=== PATIENT | female | born 1930 | race Caucasian/White ===

== ENCOUNTER → 2016-12-18 | Outpatient (CLI) | payer BC ==
[~2016-12-18] MED LIST: ALBU1AER9 INH; ASPI81TA28 PO; BACL10TA PO; GLC5 PO; GLC500 PO; GLUCTAB7 PO; HYCUDL5 PO; MULT-506 PO; PRDFOPS OPR; PYRI50TA77 PO
[2016-12-18 12:50] LABS: ESTIMATED AVERAGE GLUCOSE 148 mg/dl; HA1C FLAG Normal (Normal)
[2016-12-18 13:06] LABS: BLOOD UREA NITROGEN 21 mg/dl (7-18); BUN/CREATININE RATIO 23.4 (10-20); CALCIUM 8.9 mg/dl (8.5-10.1); CARBON DIOXIDE 31 mmol/L (21-32); CHLORIDE 103 mmol/L (98-107); CHOLESTEROL 215 mg/dl (0-200); GLUCOSE 144 mg/dl (70-99); POTASSIUM 4.2 mmol/L (3.5-5.1); SODIUM 140 mmol/L (136-145)
[2016-12-18 13:09] LABS: CHOLESTEROL/HDL RATIO 3.8; HDL CHOLESTEROL 57 mg/dl; TRIGLYCERIDES 111 mg/dl (0-150); VERY LOW DENSITY LIPOPROT CALC 22 mg/dl
== END | disposition home or self-care (01) ==
LOC: C.LABSPEC 12:04
PROVIDERS: ATTEND Internal Medicine
DX: I25.10 Atherosclerotic heart disease of native coronary artery without angina pectoris (principal); E11.9 Type 2 diabetes mellitus without complications; Z00.00 Encounter for general adult medical examination without abnormal findings

== ENCOUNTER → 2016-12-25 | Outpatient (CLI) | payer BC ==
[~2016-12-25] MED LIST changes: +ESCI1TAB9 PO; +LEVE500T PO; +MAGN200T3 PO
== END | disposition home or self-care (01) ==
LOC: C.LABSPEC 15:01
PROVIDERS: ATTEND Internal Medicine
DX: Z12.11 Encounter for screening for malignant neoplasm of colon (principal)

== ENCOUNTER → 2017-01-17 | Outpatient (CLI) | payer BC ==
[2017-01-17 13:29] LABS: BASO % 0.4 %; BASO ABS # 0.03 K/uL (0-0.2); COMPLETE YES; EOS % 1.3 %; HEMATOCRIT 45.2 % (37-47); IG% 0.1 %; LYMPH % 13.8 %; LYMPH ABS # 0.98 K/uL (1.2-3.4); MEAN CELL VOLUME 92.1 fL (80-100); MEAN CORPUSCULAR HEMOGLOBIN 29.9 pg (25-34); MEAN CORPUSCULAR HGB CONC 32.5 g/dl (32-36); MONO % 10.8 %; NEUT % 73.6 %; PLATELET COUNT 209 K/uL (130-400); RED BLOOD COUNT 4.91 M/uL (4.2-5.4)
[2017-01-17 14:35] LABS: ALT/SGPT 22 U/L (12-78); BLOOD UREA NITROGEN 22 mg/dl (7-18); BUN/CREATININE RATIO 28.8 (10-20); CARBON DIOXIDE 31 mmol/L (21-32); CHLORIDE 105 mmol/L (98-107); CREATININE 0.76 mg/dl (0.60-1.20); GLUCOSE 102 mg/dl (70-99); POTASSIUM 4.4 mmol/L (3.5-5.1); SODIUM 142 mmol/L (136-145)
[2017-01-17 14:37] LABS: CALCIUM 9.2 mg/dl (8.5-10.1)
[2017-01-17 14:45] LABS: ALB/GLOB RATIO 1.1 (0.9-2); ALKALINE PHOSPHATASE 77 U/L (45-117); AST/SGOT 18 U/L (15-37)
== END | disposition home or self-care (01) ==
LOC: C.LABSPEC 12:40
PROVIDERS: ATTEND Internal Medicine
DX: E11.9 Type 2 diabetes mellitus without complications (principal); I10 Essential (primary) hypertension; R41.3 Other amnesia

== ENCOUNTER → 2017-01-23 | Outpatient (CLI) | payer BC ==
--- NOTE | 2017-01-24 08:28 | MAMMOGRAPHY REPORT ---
BILATERAL DIGITAL SCREENING MAMMOGRAM WITH CAD: 01/23/2017 CLINICAL HISTORY: Routine screening. Patient has no complaints. TECHNIQUE: Bilateral CC and MLO views were obtained. Current study was also evaluated with a Comput er Aided Detection (CAD) system. COMPARISON: Comparison is made to exams dated: 01/18/2016 mammogram, 08/26/2013 mammogram, 08/22/2012 mammogram, 08/21/2011 mammogram, and 08/16/2001 mammogram - [facility]. BREAST COMPOSITION: The tissue of both breasts is almost entirely fatty. FINDINGS: There are post surgical changes in the left breast, with expected architectural distortion , dystrophic calcification and surgical clips remaining in the upper outer quadrant. There are mode rate vascular calcifications in the breasts and other scattered stable benign-appearing calcificatio ns. No new suspicious mass, architectural distortion or cluster of microcalcifications is seen. IMPRESSION: ACR BI-RADS CATEGORY 1: NEGATIVE There is no mammographic evidence of malignancy. A 1 year screening mammogram is recommended. The p atient will receive written notification of the results. Approximately 10% of breast cancers are not detected with mammography. A negative mammographic repor t should not delay biopsy if a clinically suggestive mass is present. Chloé Radford M.D. ay/:01/23/2017 16:35:14 Director Of Physical Security: Estefany DESIR)(Arn[place]), [facility] letter sent: Normal 1/2 BI-RADS Code: ACR BI-RADS Category 1: Negative
== END | disposition home or self-care (01) ==
LOC: C.MAMM 13:35
PROVIDERS: ATTEND Internal Medicine
DX: Z12.31 Encounter for screening mammogram for malignant neoplasm of breast (principal)

== ENCOUNTER → 2017-03-21 | Outpatient (CLI) | payer BC ==
[~2017-03-21] MED LIST changes: -ESCI1TAB9 PO; +GADAVIST IV PRN; -LEVE500T PO; -MAGN200T3 PO
--- NOTE | 2017-03-21 15:36 | DIAGNOSTIC IMAGING REPORT ---
MRI OF THE BRAIN COMBO CLINICAL HISTORY: Stroke. Aphasia. COMPARISON STUDY: MRI of the brain dated 10/21/2015. TECHNIQUE: MRI of the brain was performed utilizing various T1 and T2-weighted sequences in the axial, sagittal, and coronal planes. Contrast-enhanced sequences were acquired following the administration of 8.5 cc of Gadavist. FINDINGS: Brain parenchyma: There are age-related involutional changes noting moderate patchy subcortical and periventricular microangiopathic disease. Left temporo-occipital encephalomalacia is consistent with a remote infarct. Chronic lacunar infarcts are seen within the left caudate head and the right basal ganglia. There is no hemorrhage or mass effect. There is no restricted diffusion to suggest acute ischemia. No enhancing mass lesion is identified on the postcontrast images. Richards-white matter differentiation is preserved. No extra-axial fluid collection is seen. The cerebellar tonsils are normal in configuration. Ventricles, sulci, and cisterns: Normal in configuration. Pituitary and sella: Partially empty sella is incidentally noted. Intracranial vasculature: Normal flow voids are maintained at the skull base. Orbits: The bony orbits are grossly intact. Orbital contents are normal in appearance noting bilateral ocular lens implants. Sinuses and mastoids: Clear. Calvarium: Unremarkable. Cervical cord: Partially visualized cervical spinal cord is normal in morphology and signal intensity. IMPRESSION: Senescent change and remote infarcts as above. There is no hemorrhage, enhancing mass, or evidence of acute ischemia. Electronically signed by: Salazar Huang M.D. 03/21/2017 3:35 PM Dictated Date/Time: 03/21/2017 3:31 PM
== END | disposition home or self-care (01) ==
LOC: C.MRI 13:29
PROVIDERS: ATTEND Psychiatry & Neurology Neurology
DX: I69.920 Aphasia following unspecified cerebrovascular disease (principal)

== ENCOUNTER → 2017-04-19 | Outpatient (CLI) | payer BC ==
[~2017-04-19] MED LIST changes: -GADAVIST IV PRN
[2017-04-19 12:55] LABS: ESTIMATED AVERAGE GLUCOSE 154 mg/dl; HA1C FLAG Normal (Normal)
[2017-04-19 13:32] LABS: BLOOD UREA NITROGEN 17 mg/dl (7-18); CALCIUM 8.8 mg/dl (8.5-10.1); CARBON DIOXIDE 32 mmol/L (21-32); CHLORIDE 101 mmol/L (98-107); CHOLESTEROL 198 mg/dl (0-200); CREATININE 0.98 mg/dl (0.60-1.20); GLUCOSE 139 mg/dl (70-99); POTASSIUM 4.2 mmol/L (3.5-5.1); SODIUM 140 mmol/L (136-145); TRIGLYCERIDES 82 mg/dl (0-150); VERY LOW DENSITY LIPOPROT CALC 16 mg/dl
[2017-04-19 13:37] LABS: CHOLESTEROL/HDL RATIO 3.6; HDL CHOLESTEROL 55 mg/dl
== END | disposition home or self-care (01) ==
LOC: C.LABSPEC 12:10
PROVIDERS: ATTEND Internal Medicine
DX: E78.5 Hyperlipidemia, unspecified (principal); E11.9 Type 2 diabetes mellitus without complications; I25.10 Atherosclerotic heart disease of native coronary artery without angina pectoris

== ENCOUNTER 2017-07-11 15:45 | Emergency (ER) | payer BC ==
[~2017-07-11] VITALS: Ht 162.6 cm; Wt 86.5 kg
[~2017-07-11 15:45] MED LIST changes: +ESCI1TAB9 PO; +LEVE500T PO
[2017-07-11 15:53] VITALS: TEMP 37.2; Ht 162.6 cm; Wt 86.5 kg
--- NOTE | 2017-07-11 16:14 | EMERGENCY ROOM VISIT NOTE ---
ED Visit Note First contact with patient: 15:57 The patient was seen and examined with Dr. Alok Solitario. I agree with the history, physical and findings. Please see the note for disposition and details. Seen and evaluated w/ patient. Fall 1 week prior. Using cane for ambulation. R hip pain w/ very mild TTP w/o any limb shorterning, numbness, tingling, weakness , or sking changes/ecchymosis. Patient did have CT pelvis, no frx noted. B/l DVT US completed w/ likely chronic DVT of LLE. We did speak w/ the patient who stated she would prefer a NOAC as opposed to warfarin. Our pharmacist recommended Apixaban 5mg BID. Resident did speak w/ patient's PCP who stated this is a chronic DVT and would address anti-coagulation w/ her in clinic either tomorrow or early next week. Patient w/o SOB or CP. Blood work fairly unremarkable. Patient given f/u, d/c and return precautions and was d/c'ed to home.
[2017-07-11] MEDS ORDERED: MAGN200T3 PO (16:15)
--- NOTE | 2017-07-11 16:50 | EMERGENCY ROOM VISIT NOTE ---
History First contact with patient: 15:57 Chief Complaint: HIP PAIN Stated Complaint: RIGHT HIP AND UPPER LEG PAIN, GROIN PAIN History of Present Illness The patient is a 86 year old female who presents to the Emergency Room with complaints of right hip pain. Last week the patient states that she fell down. This was a mechanical fall. She was outside in her garden, and there is a 2 inch step that led back to the house which she tripped on. She states that she fell on the right side of her abdomen. She denies hitting her head or losing consciousness. She states that immediately after the fall she did have some discomfort in her right elbow and right hip but these resolved quickly. She was having slight discomfort with ambulation, but states that the pain was very tolerable. However the past 2 days, she notes that she is having progressive difficulty ambulating. She describes a 6 out of 10 pain in her right hip and thigh, all around that occurs when she goes from sitting to standing as well as anytime she is walking. She also states which he goes from sitting to standing the pain radiates down to her feet. When she is at rest she denies any sensory changes to her distal extremities. She denies any fevers, chills, night sweats. Her appetite has been good and she 's been eating normally. She is not having any nausea, vomiting, abdominal pain , diarrhea or constipation. She's not had any urinary symptoms including dysuria or urinary frequency. Review of Systems A 10 point review of systems was negative unless stated above. Past Medical/Surgical History Medical Problems: (1) ACUTE BRONCHOPNEUMONITIS,HYPOXEMIA Hiatal hernia Type 2 Diabetes Abnormal EEG activity, otherwise unspecified History of left-sided CVA Family History Cancer Diabetes mellitus Hypertension Lung disease Social History Smoking Status: Never Smoker Smokeless Tobacco Use: No Alcohol Use: none Drug Use: none Housing Status: lives with family Occupation Status: unemployed Current/Historical Medications Scheduled Aspirin (Aspirin Ec), 81 MG PO QAM Escitalopram Oxalate (Lexapro), 1 TAB PO DAILY Glipizide (Glipizide), 0.5 TAB PO QAM Levetiractam (Levetiracetam), 1 TAB PO DAILY Magnesium (Magnesium), 100 MG PO DAILY Metformin HCl (Metformin HCl), 1 TAB PO BID Multivitamin (Multivitamin), 1 TAB PO QAM Pyridoxine Hcl (Vitamin B 6), 0.25 TAB PO QAM Scheduled PRN Baclofen (Lioresal), 10 MG PO HS PRN for LEG CRAMPS Allergies Pencillin Physical Exam Vital Signs Date Time Temp Pulse Resp B/P (MAP) Pulse Ox O2 Delivery O2 Flow Rate FiO2 07/11/17 18:40 72 17 196/91 93 Room Air 07/11/17 16:48 73 15 189/87 92 Room Air 07/11/17 15:53 37.2 75 20 166/81 94 Room Air Pain Rating (0-10): 0 Physical Exam Constitutional: Vital signs as above were reviewed. Eyes: Pupils equal, round, and reactive to light. Extraocular muscles are intact. No proptosis. No photophobia. ENT: Mucous membranes are moist. Oropharynx is clear. No sinus tenderness. TMs are clear bilaterally. Cardiovascular: Heart with a regular rate and rhythm. Pulses are palpable and symmetric in all 4 extremities. No pedal edema appreciated. Respiratory: Lungs clear to auscultation bilaterally. No wheezes, rales, or rhonchi appreciated. No accessory muscle use. No retractions. No increased work of breathing. GI: Abdomen soft, nontender, nondistended. Normal active bowel sounds. No abdominal hernias appreciated. No rebound. No guarding. : No CVA tenderness appreciated. Musculoskeletal: No midline cervical or vertebral tenderness. No gross deformities. No bony tenderness. No calf swelling or tenderness. Normal right elbow; no ecchymoses, no bony abnormalities; normal range of motion without pain or tenderness No leg length discrepancy between L and R leg No pain or bony abnormality palpated; no trochanteric tenderness; no groin tenderness to palpation Pain with passive flexion of the right hip Bilateral calf pain to palpation; no obvious swellingg Integumentary: Warm, dry, no rashes appreciated. Neurological: Patient awake, alert, and oriented x 3. Lymph: No cervical lymphadenopathy appreciated. Medical Decision & Procedures ER Provider Diagnostic Interpretation: RIGHT HIP CT CT DOSE: 601.52 mGy.cm HISTORY: fall 1 week ago, difficulty ambulating TECHNIQUE: Multiaxial CT images of the right hip were performed and reformatted in the sagittal and coronal plane without the use of contrast. A dose lowering technique was utilized adhering to the principles of ALARA. COMPARISON: None. FINDINGS: No fracture or dislocation within the right hip. The visualized pelvic bones are intact. Soft tissues unremarkable. No significant hip effusion. Small fat-containing right inguinal hernia. Colonic diverticulosis. IMPRESSION: No fracture or dislocation within the right hip. Electronically signed by: Jaxson Albert M.D. 07/11/2017 5:23 PM Dictated Date/Time: 07/11/2017 5:20 PM The status of this report is Signed. Draft = Not yet reviewed or approved by Radiologist. Signed = Reviewed and approved by Radiologist. BILATERAL LOWER EXTREMITY VENOUS DOPPLER HISTORY: poor ambulation 1 week; bilateral calf pain; rule out DVT COMPARISON STUDY: None. FINDINGS: No DVT within the right lower extremity. There are few small scattered linear echogenic areas of nonocclusive thrombus within the left superficial femoral vein suggestive of chronic thrombus. The remaining left lower extremity venous structures are patent. IMPRESSION: 1. No DVT within the right lower extremity. 2. Nonocclusive thrombus within the left superficial femoral vein which is likely chronic. No acute DVT within the left lower extremity. Electronically signed by: Jaxson Albert M.D. 07/11/2017 6:08 PM Dictated Date/Time: 07/11/2017 6:05 PM The status of this report is Signed. Draft = Not yet reviewed or approved by Radiologist. Signed = Reviewed and approved by Radiologist. <AttendingPhy></AttendingPhy> <FamilyPhy>Issac Taveras M.D.</FamilyPhy> < PrimaryPhy>Issac Taveras M.D.</PrimaryPhy> <UnitNumber>[id number]</ UnitNumber> <VisitNumber Laboratory Results 07/11/17 16:47 07/11/17 16:47 Test 07/11/17 16:47 Red Blood Count 4.75 M/uL (4.2-5.4) Mean Corpuscular Volume 90.1 fL (80-100) Mean Corpuscular Hemoglobin 29.5 pg (25-34) Mean Corpuscular Hemoglobin Concent 32.7 g/dl (32-36) RDW Standard Deviation 42.2 fL (36.4-46.3) RDW Coefficient of Variation 13.0 % (11.5-14.5) Mean Platelet Volume 9.7 fL (7.4-10.4) Anion Gap 5.0 mmol/L (3-11) Est Creatinine Clear Calc Drug Dose 40.2 ml/min Estimated GFR () 55.3 Estimated GFR (Non- 47.7 BUN/Creatinine Ratio 19.1 (10-20) Calcium Level 8.9 mg/dl (8.5-10.1) ED Course 16:15 - The patient was seen and evaluated by Dr. Alok Solitario MD [facility] 16:35 - Labs: CBC, BMP, CT right hip, dopplers of the lower extremity. 18:45 - Reviewed labs, images and noted left chronic non-occlusive DVT 18:50 - Discussed case with patient's PCP, Dr. Pk King. Discussed chronic left DVT. Offered anticoagulation. PCP noted to hold off, he would assess in office. 18:55 - Discussed results with patient. Noted that she has no acute fracture, and can be discharge home with supportive care. 19:00 - Patient discharged home in stable condition. Medical Decision Several female who presents with right hip pain on a background fall 1 week ago. Differential diagnosis includes right hip fracture, hip dislocation, psoas muscle strain, sacroiliitis, acute osteoarthritis, trochanteric bursitis, septic joint, rhabdomyolysis. Her exam is unremarkable for any leg length discrepancy and palpation along her joints is fairly benign. She had good range of motion in her right hip but had some pain towards the end of flexion. However, the range of motion is comparable to the left side. Pain only occurs with ambulation she is pain-free at rest. CT scan in the emergency room was negative for acute fracture. She did have Dopplers done due to the bilateral calf pain which did reveal a chronic nonocclusive left DVT. My suspicion that the patient has some degree of musculoligamentous strain the fall. This is not require admission at this time, and we recommend supportive care at home I spoke with her PCP Dr. Pk King and discussed the patient's workup here in the emergency room. I made note of the nonocclusive left DVT which appears to be chronic. I did offer to place the patient on anticoagulation at discharge. He did note that he would address this in the office but at this point not to start her on anticoagulation. I relayed the results the patient and her daughter, who were reassured by the fact there was no acute fracture. I did recommend discharge home, and provided resources for them to contact at [facility] if needed. I reiterated supportive treatment such as Tylenol and/or Motrin as needed for pain and discomfort when necessary. I did encourage the patient to use the right hip as much as possible to prevent deconditioning. I advised her to follow-up with her primary care provider within one week to ensure that her symptoms continued to improve. The patient was feeling well the time of discharge and was discharged in stable condition. 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 scan in the emergency room was negative for a hip fracture. We did an ultrasound did show an old clot in your left leg. We spoke with your PCP, who does not think you need to be on a blood thinner right now. He will discuss this with you in the office You likely strained a muscle in the hip. Please use Tylenol as needed for pain. If Tylenol does not help, you can add in Motrin. You can try ice packs and heating packs as well. Please try to walk as much as tolerated to prevent deconditioning. If you want contact information for a physical therapist you can call [facility] at [phone]. If your symptoms fail to improve, acutely worsen or please seek medical attention immediately by either calling your primary care provider or going to your nearest emergency department. Otherwise, please see your primary care provider within 1 week to ensure that your symptoms continue to improve. It was a pleasure to be involved in your care and we wish you all the best. Problem Qualifiers
[2017-07-11 17:00] LABS: HEMATOCRIT 42.8 % (37-47); MEAN CELL VOLUME 90.1 fL (80-100); MEAN CORPUSCULAR HEMOGLOBIN 29.5 pg (25-34); MEAN CORPUSCULAR HGB CONC 32.7 g/dl (32-36); MEAN PLATELET VOLUME 9.7 fL (7.4-10.4); PLATELET COUNT 205 K/uL (130-400); RED BLOOD COUNT 4.75 M/uL (4.2-5.4); WHITE BLOOD COUNT 7.18 K/uL (4.8-10.8)
[2017-07-11 17:23] LABS: BUN/CREATININE RATIO 19.1 (10-20); CALCIUM 8.9 mg/dl (8.5-10.1); CREATININE 1.05 mg/dl (0.60-1.20); POTASSIUM 4.4 mmol/L (3.5-5.1)
--- NOTE | 2017-07-11 17:25 | DIAGNOSTIC IMAGING REPORT ---
RIGHT HIP CT CT DOSE: 601.52 mGy.cm HISTORY: fall 1 week ago, difficulty ambulating TECHNIQUE: Multiaxial CT images of the right hip were performed and reformatted in the sagittal and coronal plane without the use of contrast. A dose lowering technique was utilized adhering to the principles of ALARA. COMPARISON: None. FINDINGS: No fracture or dislocation within the right hip. The visualized pelvic bones are intact. Soft tissues unremarkable. No significant hip effusion. Small fat-containing right inguinal hernia. Colonic diverticulosis. IMPRESSION: No fracture or dislocation within the right hip. Electronically signed by: Jaxson Albert M.D. 07/11/2017 5:23 PM Dictated Date/Time: 07/11/2017 5:20 PM
--- NOTE | 2017-07-11 18:09 | DIAGNOSTIC IMAGING REPORT ---
BILATERAL LOWER EXTREMITY VENOUS DOPPLER HISTORY: poor ambulation 1 week; bilateral calf pain; rule out DVT COMPARISON STUDY: None. FINDINGS: No DVT within the right lower extremity. There are few small scattered linear echogenic areas of nonocclusive thrombus within the left superficial femoral vein suggestive of chronic thrombus. The remaining left lower extremity venous structures are patent. IMPRESSION: 1. No DVT within the right lower extremity. 2. Nonocclusive thrombus within the left superficial femoral vein which is likely chronic. No acute DVT within the left lower extremity. Electronically signed by: Jaxson Albert M.D. 07/11/2017 6:08 PM Dictated Date/Time: 07/11/2017 6:05 PM
[2017-07-11 19:28] VITALS: BP 196/91; PULSE 74; O2SAT 93
== END 2017-07-11 19:10 | disposition home or self-care (01) ==
LOC: C.EDB 15:46 → C.EDC 19:10
DX: M25.551 Pain in right hip (principal); I82.5Z2 Chronic embolism and thrombosis of unspecified deep veins of left distal lower extremity; E11.9 Type 2 diabetes mellitus without complications; Z86.73 Personal history of transient ischemic attack (TIA), and cerebral infarction without residual deficits; Z79.82 Long term (current) use of aspirin; Z79.84 Long term (current) use of oral hypoglycemic drugs; Z79.899 Other long term (current) drug therapy; Z88.0 Allergy status to penicillin; Z80.9 Family history of malignant neoplasm, unspecified; Z83.3 Family history of diabetes mellitus; Z82.49 Family history of ischemic heart disease and other diseases of the circulatory system

== ENCOUNTER → 2017-09-01 | Outpatient (CLI) | payer BC ==
[~2017-09-01] MED LIST changes: -ALBU1AER9 INH; -GLUCTAB7 PO; -HYCUDL5 PO; +MAGN200T3 PO; -PRDFOPS OPR
[2017-09-01 10:26] LABS: ESTIMATED AVERAGE GLUCOSE 151 mg/dl; HA1C FLAG Normal (Normal)
[2017-09-01 10:30] LABS: BLOOD UREA NITROGEN 17 mg/dl (7-18); BUN/CREATININE RATIO 21.7 (10-20); CALCIUM 8.9 mg/dl (8.5-10.1); CARBON DIOXIDE 31 mmol/L (21-32); CHLORIDE 102 mmol/L (98-107); CHOLESTEROL 223 mg/dl (0-200); CREATININE 0.78 mg/dl (0.60-1.20); GLUCOSE 146 mg/dl (70-99); POTASSIUM 4.1 mmol/L (3.5-5.1); SODIUM 139 mmol/L (136-145)
[2017-09-01 10:32] LABS: CHOLESTEROL/HDL RATIO 3.7; HDL CHOLESTEROL 61 mg/dl; TRIGLYCERIDES 128 mg/dl (0-150); VERY LOW DENSITY LIPOPROT CALC 26 mg/dl
== END | disposition home or self-care (01) ==
LOC: C.LAB 09:34
PROVIDERS: ATTEND Internal Medicine
DX: E11.65 Type 2 diabetes mellitus with hyperglycemia (principal); E78.5 Hyperlipidemia, unspecified

== ENCOUNTER → 2018-01-04 | Outpatient (CLI) | payer BC ==
[2018-01-04 18:38] LABS: BLOOD UREA NITROGEN 18 mg/dl (7-18); CALCIUM 8.8 mg/dl (8.5-10.1); CARBON DIOXIDE 28 mmol/L (21-32); CREATININE 0.83 mg/dl (0.60-1.20); GLUCOSE 141 mg/dl (70-99); SODIUM 139 mmol/L (136-145)
[2018-01-04 18:41] LABS: CHOLESTEROL 215 mg/dl (0-200); LDL CHOLESTEROL CALCULATED 143 mg/dl
[2018-01-05 07:20] LABS: HEMOGLOBIN A1C 6.9 % (4.5-5.6)
== END | disposition home or self-care (01) ==
LOC: C.LABSPEC 16:44
PROVIDERS: ATTEND Internal Medicine
DX: Z00.00 Encounter for general adult medical examination without abnormal findings (principal); I70.91 Generalized atherosclerosis; E11.9 Type 2 diabetes mellitus without complications; E78.5 Hyperlipidemia, unspecified

== ENCOUNTER 2018-02-15 17:00 | Emergency (ER) | payer BC ==
[~2018-02-15] VITALS: Ht 160 cm; Wt 87.1 kg
[2018-02-15 17:06] VITALS: TEMP 36.9; Ht 160 cm; Wt 87.1 kg
[2018-02-15] MEDS ORDERED: PYRI25TA3 PO (18:15)
--- NOTE | 2018-02-15 18:40 | DIAGNOSTIC IMAGING REPORT ---
R RIBS UNILATERAL WITH PA CHEST CLINICAL HISTORY: eval for trauma. Fall. Right-sided chest pain. COMPARISON STUDY: Chest 12/27/2015. FINDINGS: Best seen on images 4 and 5 there are nondisplaced right anterior fourth through sixth rib fractures. No pneumothorax. Large hiatus hernia. The heart is normal in size. Mild interstitial thickening which is likely chronic. Left basilar linear densities favor subsegmental atelectasis. No evidence for pulmonary edema. IMPRESSION: 1. Nondisplaced right anterior fourth through sixth rib fractures. No pneumothorax. 2. Large hiatus hernia. Electronically signed by: Jaxson Albert M.D. 02/15/2018 6:39 PM Dictated Date/Time: 02/15/2018 6:34 PM
--- NOTE | 2018-02-15 19:14 | EMERGENCY ROOM VISIT NOTE ---
History Report prepared by Kevin: Belinda Sexton Under the Supervision of: Dr. Akira Veloz M.D. First contact with patient: 17:10 Chief Complaint: FALL Stated Complaint: PAIN RIGHT BREAST, FELL LAST WEEK History of Present Illness The patient is an 87 year old female who presents to the Emergency Room with complaints of persistent right breast pain starting 2 days ago. She describes the pain as sharp. The pain worsens with lying on her right side, certain movements, and breathing in. The pain improves with Aleve. The patient fell last week while she was raking. She took a misstep and fell. She landed on her right side. She denies any LOC. She suspects the pain is from the fall. She has not noticed any bruises. She denies any SOB, abdominal pain, shoulder pain, arm pain, leg pain, headache, facial pain, neck pain, back pain, lightheadedness, or dizziness. She is on baby aspirin. She has a history of hiatal hernia. Source of History: patient Onset: 2 days ago Position: other (right breast) Quality: sharp Timing: other (persistent) Modifying Factors (Worsening): breathing, movement, other (lying on right side) Modifying Factors (Relieving): other (Aleve) Associated Symptoms: No LOC, No headache, No neck pain, No SOB, No abdominal pain, No back pain Review of Systems See HPI for pertinent positives & negatives. A total of 10 systems reviewed and were otherwise negative. Past Medical & Surgical Medical Problems: (1) ACUTE BRONCHOPNEUMONITIS,HYPOXEMIA Old medical records were reviewed. Nurse's notes were reviewed and I agree with. Family History Cancer Diabetes mellitus Hypertension Lung disease Social History Smoking Status: Never Smoker Alcohol Use: none Drug Use: none Housing Status: lives with family Occupation Status: unemployed Current/Historical Medications Scheduled Aspirin (Aspirin Ec), 81 MG PO QAM Glipizide (Glipizide), 2.5 MG PO QAM Magnesium (Magnesium), 100 MG PO DAILY Metformin HCl (Metformin HCl), 500 MG PO BID Multivitamin (Multivitamin), 1 TAB PO QAM Pyridoxine Hcl (Pyridoxine Hcl), 25 MG PO QAM Allergies Coded Allergies: Penicillins (Verified Allergy, Unknown, CHILDHOOD ALLERGY, 02/15/18) Physical Exam Vital Signs Date Time Temp Pulse Resp B/P (MAP) Pulse Ox O2 Delivery O2 Flow Rate FiO2 02/15/18 19:15 76 20 165/71 96 02/15/18 19:15 76 20 165/71 96 Room Air 02/15/18 17:06 36.9 76 20 190/89 93 Room Air Physical Exam General: Non-ill appearing older female in no acute distress. HEENT: Normal cephalic atraumatic. Pupils are equal round and reactive to light. Extraocular movements are intact. Oropharynx is pink with moist mucous membranes. No swelling of the mouth lips or tongue. Neck: Supple with a midline trachea. No meningeal signs or stiffness, no JVD or bruits. No Stridor. Chest: Clear to auscultation bilaterally. No wheezes or rhonchi. No increased work of breathing. Breast (in the presence of the daughter): Right breast is minimally tender. No redness or bruising. Heart: regular rate and rhythm. Abdomen: Soft nontender, nondistended without rebound guarding or rigidity. Extremities: No cyanosis clubbing or edema. No calf tenderness or assymetry Spine/Back. Non tender to palpation. No CVA tenderness Skin: Good turgor without rashes. Neurologic exam: Cranial nerves two through 12 are intact. Motor and sensation are intact and symmetrical throughout. Medical Decision & Procedures ER Provider Diagnostic Interpretation: X-ray results as stated below per interpretation by me and the radiologist: R RIBS UNILATERAL WITH PA CHEST CLINICAL HISTORY: eval for trauma. Fall. Right-sided chest pain. COMPARISON STUDY: Chest 12/27/2015. FINDINGS: Best seen on images 4 and 5 there are nondisplaced right anterior fourth through sixth rib fractures. No pneumothorax. Large hiatus hernia. The heart is normal in size. Mild interstitial thickening which is likely chronic. Left basilar linear densities favor subsegmental atelectasis. No evidence for pulmonary edema. IMPRESSION: 1. Nondisplaced right anterior fourth through sixth rib fractures. No pneumothorax. 2. Large hiatus hernia. Electronically signed by: Jaxson Albert M.D. 02/15/2018 6:39 PM Dictated Date/Time: 02/15/2018 6:34 PM ED Course 1716: Past medical records reviewed. The patient was evaluated in room B10, and a complete history and physical examination were performed. 1859: Upon reevaluation, the patient is doing well. I discussed the results and treatment plan with her. She verbalized agreement of the treatment plan. The patient was discharged home. Medical Decision Differentials include, but are not limited to; rib fracture, pneumothorax, breast contusion. This patient comes in as described above. she fell about a week ago and hit her right anterior chest she has been having a little pain since then that comes and goes. It is worse with breathing or moving. she looks well on exam on exam and she has no bruising the chest or breast and no crepitus. she has no abdominal pain. She has been using occasional NSAID and says that makes it feel much better. She has stable vital signs. She is mildly hypertensive. I did a chest x-ray with rib series there is no pneumothorax. she does have nondisplaced right-sided fourth fifth and sixth rib fractures. Again at this point, she has been out of the injury for about a week and is doing well and I do not think she needs any further imaging at this point her pain seems to be adequately controlled with NSAIDs which she should continue but take with food return if: Increasing pain, worsening of symptoms, fever or chills, any new problems or concerns. She should follow-up with her regular doctor early this coming week for recheck and return to the over the weekend if symptoms worsen. Medication Reconcilliation Current Medication List: was personally reviewed by me Blood Pressure Screening Patient's blood pressure: Elevated blood pressure Blood pressure disposition: Elevated BP felt to be situational Impression Primary Impression: Rib fractures Scribe Attestation The scribe's documentation has been prepared under my direction and personally reviewed by me in its entirety. I confirm that the note above accurately reflects all work, treatment, procedures, and medical decision making performed by me. Departure Information Dispostion Home / Self-Care Referrals Issac Taveras M.D. (PCP) Forms HOME CARE DOCUMENTATION FORM, IMPORTANT VISIT INFORMATION Patient Instructions My [facility] [place] [employer] Additional Instructions Rest. Drink plenty of fluids. Continue to use your Aleve in the [id number] recommended dosages if needed. Take with food Return to the ER if: Increasing pain, worsening symptoms, shortness of breath, fever chills, any new problems or concerns Follow-up with your doctor early this week for recheck or return to the ER if symptoms worsen in any way
[2018-02-15 19:15] VITALS: BP 165/71; PULSE 76; O2SAT 96
== END 2018-02-15 19:47 | disposition home or self-care (01) ==
LOC: C.EDB 17:02
DX: S22.41XA Multiple fractures of ribs, right side, initial encounter for closed fracture (principal); W19.XXXA Unspecified fall, initial encounter; Y93.H9 Activity, other involving exterior property and land maintenance, building and construction; Z88.0 Allergy status to penicillin

== ENCOUNTER → 2018-04-19 | Outpatient (CLI) | payer BC ==
[~2018-04-19] MED LIST changes: -BACL10TA PO; -ESCI1TAB9 PO; -LEVE500T PO; +PYRI25TA3 PO; -PYRI50TA77 PO
--- NOTE | 2018-04-19 14:46 | DIAGNOSTIC IMAGING REPORT ---
MANDIBLE MIN 4 VIEWS ROUTINE CLINICAL HISTORY: FALL trauma COMPARISON STUDY: No previous studies for comparison. FINDINGS: Normal study IMPRESSION: Normal study The above report was generated using voice recognition software. It may contain grammatical, syntax or spelling errors. Electronically signed by: Derick Hughes M.D. 04/19/2018 2:45 PM Dictated Date/Time: 04/19/2018 2:43 PM
--- NOTE | 2018-04-19 15:00 | DIAGNOSTIC IMAGING REPORT ---
FACIAL BONES MIN 3 VIEWS RTN CLINICAL HISTORY: FALL. Facial pain. COMPARISON STUDY: None. FINDINGS: The paranasal sinuses and mastoid air cells are clear. The orbital rims, nasal bones, nasal septum are intact. No fractures within the mandible. Possible abnormal lucency within the right anterior zygomatic arch. This may represent diastases of a suture or small fracture. The calvarium appears intact. IMPRESSION: Possible abnormal lucency within the right anterior zygomatic arch. This may represent diastases of a suture or small fracture. If the patient is complaining of right-sided facial pain then follow-up maxillofacial CT is recommended to exclude a fracture. Electronically signed by: Jaxson Albert M.D. 04/19/2018 2:58 PM Dictated Date/Time: 04/19/2018 2:55 PM
== END | disposition home or self-care (01) ==
LOC: C.RAD1850 14:06
PROVIDERS: ATTEND Nurse Practitioner Family
DX: R51 Headache (principal); W19.XXXA Unspecified fall, initial encounter

== ENCOUNTER → 2018-05-07 | Outpatient (CLI) | payer BC ==
[2018-05-07 13:51] LABS: HEMOGLOBIN A1C 7.1 % (4.5-5.6)
[2018-05-07 13:56] LABS: BLOOD UREA NITROGEN 16 mg/dl (7-18); CALCIUM 8.5 mg/dl (8.5-10.1); CARBON DIOXIDE 28 mmol/L (21-32); CHOLESTEROL 186 mg/dl (0-200); CREATININE 0.75 mg/dl (0.60-1.20); GLUCOSE 150 mg/dl (70-99); LDL CHOLESTEROL (DIRECT) 127 mg/dl; POTASSIUM 4.3 mmol/L (3.5-5.1); SODIUM 139 mmol/L (136-145)
== END | disposition home or self-care (01) ==
LOC: C.LABSPEC 12:47
PROVIDERS: ATTEND Internal Medicine
DX: I10 Essential (primary) hypertension (principal); E11.9 Type 2 diabetes mellitus without complications; E78.5 Hyperlipidemia, unspecified

== ENCOUNTER 2019-01-26 09:25 | Observation (INO) ==
--- OUTSIDE RECORDS SUMMARY | 2019-01-26 09:31 | External Medical Summary | Continuity of Care Document ---
:1930 Author Name Jocelyn Phelps, Provider Address Unavailable Unavailable , Care Team Providers Name Role Phone Unavailable Unavailable Unavailable NATHAN GALVEZ Unavailable Unavailable Unavailable Unavailable Unavailable Problems Diabetes (250.00) (E11.9) Paraesophageal hernia (553.3) (K44.9) Nephrolithiasis (592.0) (N20.0) Allergies and Adverse Reactions Penicillins (Allergy) Medications metFORMIN HCl ER 500 MG Oral Tablet Extended Release 24 Hour , M.D. Refills: 0 Procedures History of Tonsillectomy Status: Complet ed History of Oophorectomy Unilateral Left Side Status: Completed History of Oophorectomy Unilateral Right Side Status: Completed History of Breast Surgery Status: Comple felix Immunizations Immunizations not documented Family History spouse Family history of malignant neoplasm of prostate (V16. 42) (Z80.42) Status: Active Mother Family history of diabetes mellitus (V18.0) (Z83.3) Status: Active Child Family history of diabetes mellitus (V18.0) (Z83.3) Status: Active Family history of hypertension (V17.49) (Z82.49) Status: Act jalil natural son Family history of kidney stones (V18.69) (Z84.1) Status: Act jalil Social History - Smoking Status Never smoker Plan of Treatment Planned Observations Planned Goals not documented Results No Known Results Results not documented
--- NOTE | 2019-01-26 09:55 | XRay Report ---
SINGLE VIEW CHEST CLINICAL HISTORY: Atypical chest pain. FINDINGS: An AP, portable, upright chest radiograph is compared to study dated 02/15/2018. The examina tion is degraded by portable technique and patient rotation. There is a large hiatal hernia. This obs cures the cardiac silhouette. There is atherosclerotic calcification of the thoracic aorta. The pulmo nary vasculature is noncongested. Chronic interstitial thickening is similar to previous. There is bi basilar atelectasis. No airspace consolidation or large pleural effusion is identified. No pneumothor ax is seen. The skeletal structures are osteopenic. The bony thorax is grossly intact. Degenerative c hange and mild scoliosis are noted in the thoracic spine. IMPRESSION: 1. There is no acute cardiopulmonary abnormality. 2. Large hiatal hernia. Electronically signed by: Salazar Huang M.D. 01/26/2019 9:53 AM
[2019-01-26 10:17] LABS: Basophils # (auto) 0.02 K/uL (0-0.2); Basophils % (auto) 0.5 %; Eosinophils # (auto) 0.12 K/uL (0-0.5); Eosinophils % (auto) 2.7 %; Hematocrit (blood only) 42.6 % (37-47); Hemoglobin 14.5 g/dL (12.0-16.0); Immature Granulocytes # (auto) 0.01 K/uL (0.00-0.02); Immature Granulocytes % (auto) 0.2 %; Lymphocytes # (auto) 0.72 K/uL (1.2-3.4); Lymphocytes % (auto) 16.2 %; Mean Corpuscular Volume 90.4 fL (80-100); Mean Platelet Volume 9.8 fL (7.4-10.4); Monocytes # (auto) 0.42 K/uL (0.11-0.59); Monocytes % (auto) 9.5 %; Neutrophils # (auto) 3.15 K/uL (1.4-6.5); Neutrophils % (auto) 70.9 %; Platelet Count 176 K/uL (130-400); RDW Coefficient of Variation 13.1 % (11.5-14.5); RDW Standard Deviation 43.4 fL (36.4-46.3); Red Blood Count 4.71 M/uL (4.2-5.4); White Blood Count 4.44 K/uL (4.8-10.8)
[2019-01-26 10:39] LABS: Albumin Level 3.5 gm/dl (3.4-5.0); BUN Creatinine Ratio 25.3 (10-20); Creatinine Clr Calc Pharmacy 44.2 ml/min; Est GFR (African American) 65.7; Est GFR (Non-African American) 56.7; Potassium 3.9 mmol/L (3.5-5.1)
[2019-01-26 10:44] LABS: Albumin Globulin Ratio 1.1 (0.9-2); Bilirubin,Total 0.4 mg/dl (0.2-1); Globulin 3.2 gm/dl (2.5-4.0); Phosphorus 3.3 mg/dl (2.5-4.9); Total Protein 6.7 gm/dl (6.4-8.2); Troponin I 0.039 ng/ml (0-0.045)
[2019-01-26] MEDS ORDERED: OPTIRAY 320 125ml IV PRN (11:16)
--- NOTE | 2019-01-26 12:12 | CT Scan Report ---
CT ANGIOGRAM OF THE CHEST CLINICAL HISTORY: Dyspnea. Atypical chest pain. COMPARISON STUDY: Chest x-ray dated 01/26/2019. Abdominal CT dated 08/13/2014. TECHNIQUE: Following the IV administration of 98 cc of Optiray 320, CT angiogram of the chest was per formed from the upper abdomen to the thoracic inlet utilizing the pulmonary embolus protocol. Images are reviewed in the axial, sagittal, and coronal planes. 3-D MIPS images are created and assessed. IV contrast was administered without complication. A dose lowering technique was utilized adhering to the principles of ALARA. CT DOSE: 448.15 mGy.cm FINDINGS: Thyroid: Imaged portions of the thyroid gland are normal in size and attenuation. Thoracic aorta: There is atherosclerotic calcification of the thoracic aorta, which is normal in keara prabhu and demonstrates bovine arch anatomy. No dissection is seen. Pulmonary vasculature: The pulmonary trunk is normal in caliber. There are no filling defects identif ied in main, lobar, or segmental pulmonary branches to suggest pulmonary embolus. Heart: The heart is normal in size and without pericardial effusion. The coronary arteries are densel y calcified. Lungs and pleural spaces: There is bibasilar scarring/atelectasis. No airspace consolidation or pleur al effusion is seen. The trachea and central airways are patent. Mild diffuse peripheral bronchial th ickening is noted. There is a 7 mm nodule at the right lung base seen on image 110. A 4 mm right lowe r lobe pulmonary nodule is seen on image #152. Additional smaller nodules are noted. These are unchan ged dating back to 2013 and of doubtful significance. Mediastinum: There is no mediastinal lymphadenopathy. Margaret: Clear. Axillae: There is no axillary lymphadenopathy. Upper abdomen: There is a 5 cm cyst identified in the left hepatic lobe. There is a large hiatal marsha ia, with the majority of the stomach located in the thoracic cavity. The hiatal hernia also contains the mid to distal pancreas. Skeletal structures: The skeletal structures are osteopenic. No lytic or blastic bony lesions are see n. Degenerative change and mild kyphoscoliosis are noted in the thoracic spine. IMPRESSION: 1. There is no evidence of pulmonary embolus in the main, lobar, or segmental pulmonary arteries. 2. Large hiatal hernia. 3. There is no airspace consolidation or pleural effusion. 4. Mild diffuse peribronchial thickening suggests reactive air disease. Clinical correlation will be required. 5. Additional findings as above. Electronically signed by: Salazar Huang M.D. 01/26/2019 12:11 PM
[2019-01-26] MEDS ORDERED: ASPIRIN CHEW 324 MG PO STA (12:27)
[2019-01-26] MEDS ORDERED: ALBUT/IPRATROP 3MG/0.5MG NEB 3 ML VIAL NEB STA (12:27)
--- NOTE | 2019-01-26 12:41 | History & Physical Report ---
Date of Service January 26, 2019 Assessment & Plan (1) Chest pain: Patient has chest discomfort that was associate with a fall however she does have lateral T wave inversions in her EKG, she has a low normal troponin level. Patient be on telemetry serial enzymes will be undertaken patient will have a resting echocardiogram because of her advanced age cardiology consultation will be undertaken to determine best way to risk stratify versus medical management in this patient. Patient will also be on aspirin. Her heart murmur in the right upper sternal border rating to her clavicle is concerning for aortic stenosis. This can certainly lead to anginal symptoms. She does not however have any heart failure-like symptoms. Echocardiogram is pending (2) Diabetes mellitus: Patient typically takes glipizide and metformin. Metformin will be held glipizide will be continued a sliding scale and will be added to help control swings of blood glucose (3) Hypertension: Patient typically is on losartan 50 this will be continued is also renal protective with her diabetes (4) DVT prophylaxis: DVT prevention with subcutaneous heparin (5) Reactive airway disease: This is certainly a clinical diagnosis we will add as needed Xopenex and encourage her to have follow-up as an outpatient History of Present Illness Primary Care Provider: Issac Brito MD 88-year-old male presents to the hospital with concerns of chest discomfort. This is in the context of her having a fairly significant hiatal hernia which causes her to sleep in different positions at night. Patient does not have reflux associate with a hiatal hernia but she says if she sleeps flat her back she notices shortness of breath. The patient feels a heaviness or awareness of her chest not true chest pressure. Is not worsened by exertion and there are no associated symptoms such as diaphoresis nausea or radiation of her discomfort. Patient also has recently had a bronchitis episode possibly 1 month ago and this was treated with [id number] medications. In the emergency department it was noted that she had some perhaps changes on CT scan and she was given an aspirin and a DuoNeb at the same time. She said after those therapies her a wareness of her chest discomfort improved. 1 month ago when she saw a walk-in clinic for bronchitis they told her she had a murmur which she was unaware of. This is confirmed on exam today does sound to be aortic stenosis by the location. Her initial EKG did show some lateral T wave changes in her initial troponin although normal was not less than 0.015 it was actually 0.039 Patient is currently resting comfortably she is agreeable to observation for further cardiac risk stratification Allergies Allergy/AdvReac Type Severity Reaction Status Date / Time Penicillins Allergy Unknown CHILDHOOD Verified 01/26/19 11:05 ALLERGY Home Medications Home Medications Medication Instructions Recorded Confirmed Type aspirin [Aspir-Low] 81 mg PO DAILY 01/26/19 01/26/19 History glipizide [Glucotrol] 2.5 mg PO BID 01/26/19 01/26/19 History losartan [Cozaar] 50 mg PO QAM 01/26/19 01/26/19 History magnesium oxide 100 mg PO QAM 01/26/19 01/26/19 History metformin [Glucophage] 500 mg PO BID 01/26/19 01/26/19 History multivitamin 1 tab PO QAM 01/26/19 01/26/19 History pyridoxine (vitamin B6) 25 mg PO QAM 01/26/19 01/26/19 History Past Med/Surg History Medical History Diabetes mellitus Hiatal hernia Hypertension Family History Other Heart disease Social History Feels Safe at Home: Yes Smoking Status: Never smoker Review of Systems Review of Systems: ROS: well nourished well developed. No double vision blurry vision No problems with speech or swallowing No palpitations, she claims to have an awareness of her chest discomfort but not true chest pressure Patient relates breathing issues when laying flat in her back improved with laying on either side No abdominal pain nausea vomiting diarrhea changes in appetite or weight No burning urine urine frequency or changes in color No focal joint pain or muscle pain No skin rashes or oral lesions No unusual bruising or bleeding No focused back pain or numbness or loss of strength No changes in memory or confusion Physical Exam Physical Exam: The patient appeared well nourished and normally developed. Vital signs as documented. Head exam is unremarkable. normocephalic, atraumatic Neck is without jugular venous distension, thyromegaly, or lymphademopathy Lungs some crackles to left base Cardiac exam reveals Rhythm is regular.ADOLFO Abdominal exam reveals normal bowel sounds, no masses, no organomegaly Extremities are nonedematous and both pedal pulses are present Neurologic exam is A&Ox3, no focal deficits, strength is equal bilateral Psychologically seems neither anxious or depressed Skin is warm Dry without bruises or lesions Results & Data Vital Signs (Past 12 Hours) Vital Signs Temp Pulse Pulse Resp BP BP Pulse Ox 01/26/19 11:30 75 18 156/71 H 91 01/26/19 09:30 36.9 C 95 H 20 162/85 H [address] angio There is no evidence of pulmonary embolus in the main, lobar, or segmental pulmonary arteries. Large hiatal hernia. There is no airspace consolidation or pleural effusion. Mild diffuse peribronchial thickening suggests reactive air disease. Clinical correlation will be required. cxr shows large hiatal hernia no acute cardiopulmonary findings EKG shows normal sinus rhythm first-degree AV blockInverted T waves inferiorly and laterally
--- NOTE | 2019-01-26 12:54 | Emergency Department Note ---
Entered by Kelly Whitten acting as a scribe for History of Present Illness General Chief complaint: Rib Injury/Pain Stated complaint: FALL, PRESSURE IN CHEST FROM MOWING Time Seen by Provider: 01/26/19 09:35 Source: patient and family Mode of arrival: wheelchair Limitations: no limitations History of Present Illness Onset (ago): day(s) 1 Location: chest (ribs) Radiation: non-radiation Pain Consistency: + constant Relieved By: + none Exacerbated By: + none Associated symptoms: + other (-arm pain, -jaw pain); no cough, no nausea/vomiting and no shortness of breath Treatments prior to arrival: none The patient is an 88 year old white female w/ PMHx of DM who presents to the ED w/ CC of rib pain beginning yesterday. Her daughter reports the patient fell last week, but did not complain of any injuries at the time. Yesterday while mowing her lawn on a riding mower, she started to experience chest pressure and rib pain, so her daughter encouraged her to come to the ED today. Her chest pain does not radiate into her jaw or arms. Her Oxygen saturation is 88% on room air. She denies any shortness of breath or recent cough. The patient did experience broken ribs on the right side last year after a previous fall. She denies anything making her pain better or worse. She denies any nausea or vomiting. She denies any history of PE or DVT. She has not had any recent car or plane travel. She denies any recent increased pain or swelling in the legs. There is a family history of heart disease in the 60's. Home Medications Home Medications Medication Instructions Recorded Confirmed Type aspirin [Aspir-Low] 81 mg PO DAILY 01/26/19 01/26/19 History glipizide [Glucotrol] 2.5 mg PO BID 01/26/19 01/26/19 History losartan [Cozaar] 50 mg PO QAM 01/26/19 01/26/19 History magnesium oxide 100 mg PO QAM 01/26/19 01/26/19 History metformin [Glucophage] 500 mg PO BID 01/26/19 01/26/19 History multivitamin 1 tab PO QAM 01/26/19 01/26/19 History pyridoxine (vitamin B6) 25 mg PO QAM 01/26/19 01/26/19 History Allergies Allergy/AdvReac Type Severity Reaction Status Date / Time Penicillins Allergy Unknown CHILDHOOD Verified 01/26/19 11:05 ALLERGY Past Med/Surg History Medical History Diabetes mellitus Family History Other Heart disease Social History Feels Safe at Home: Yes Smoking Status: Never smoker Review of Systems See HPI for pertinent positives & negatives. and A total of 10 systems reviewed and were otherwise negative Physical Exam Vital Signs Vital Signs - 24 hr 01/26/19 09:30 01/26/19 11:30 Temperature 36.9 C Temperature Source Oral Sepsis Recent Fever Within 48 Hours No Sepsis Action Taken by Nursing No Action Required Pulse Rate 95 H Pulse Rate [Apical] 75 Pulse Rhythm Regular Pulse Rhythm [Apical] Regular Pulse Strength Normal Respiratory Rate 20 18 Respiratory Effort / Characteristics Non-Labored Non-Labored Spontaneous Respiratory Depth Normal Normal Respiratory Pattern Regular Blood Pressure 162/85 H Blood Pressure [Left Arm] 156/71 H Blood Pressure Mean 110 Blood Pressure Mean [Left Arm] 99 Blood Pressure Position Sitting Pulse Oximetry 88 L 91 Oxygen Delivery Method Room Air Room Air GENERAL: Well appearing, well nourished, wearing glasses, NAD, non-toxic. EYE EXAM: Normal conjunctiva. PERRL, no anisocoria and EOM's grossly intact w/o pain. OROPHARYNX: Moist mucus membranes. Grossly normal dentition. [No exudate, posterior pharynx is clear, no tonsillar/uvular deviation or swelling.] NECK: Supple, no nuchal rigidity, no adenopathy, non-tender. No signs of meningismus. CHEST: No reproducible chest wall TTP, no crepitus or bruising. LUNGS: Clear to auscultation. Mild tachypnea. HEART: NSR, no MRG. ABDOMEN: Abdomen soft, non-tender, normo-active bowel sounds, no masses, no rebound or guarding. BACK: No CVA TTP. SKIN: No rashes and no bruising. UPPER EXTREMITIES: Upper extremities are grossly normal. LOWER EXTREMITIES: No pitting edema. No calf pain. Negative Rayshawn's sign. NEURO EXAM: A&O x3, cranial nerves II-XII grossly intact, normal speech, moves all 4 extremities on command w/o issue. Course 0948: The patient was evaluated in room B5 and a complete history and physical were performed. 1235: I [facility] the [facility] The patient will be further evaluated. 1240: I reevaluated the patient. She is resting comfortably. I discussed my recommendation she remain in the hospital for further evaluation and management and she and her daughter verbalized complete understanding and agreement. Consultations Consultation #1: I discussed the patients [facility] The patient will be further evaluated. Time: 12:35 Administered Medications Ioversol (Optiray 320 125ml) 98 ml IV ONCE PRN PRN Reason: Interaction Checking Stop: 01/30/19 11:15 Last Admin: 01/26/19 11:17 Dose: 98 ml Documented by: [id number] Discontinued Medications Albuterol (Duoneb) 3 ml NEB NOW STA Stop: 01/26/19 12:28 Last Admin: 01/26/19 12:32 Dose: 3 ml Documented by: [id number] Aspirin (Aspirin) 324 mg PO NOW STA Stop: 01/26/19 12:28 Last Admin: 01/26/19 12:32 Dose: 324 mg Documented by: [id number] Medical Decision Making Medical Records Attestation: I reviewed the patient's medical records. Home Medications Current Medication List: was personally reviewed by me Laboratory Data Attestation: I reviewed the patient's lab results. Result diagrams: 01/26/19 10:03 01/26/19 10:03 Lab Results 01/26/19 01/26/19 01/26/19 Range/Units 10:03 10:03 10:11 WBC 4.44 L (4.8-10.8) K/uL RBC 4.71 (4.2-5.4) M/uL Hgb 14.5 (12.0-16.0) g/dL Hct 42.6 (37-47) % MCV 90.4 (80-100) fL MCH 30.8 (25-34) pg MCHC 34.0 (32-36) g/dL RDW Std Deviation 43.4 (36.4-46.3) fL RDW Coeff of [place] 13.1 (11.5-14.5) % Plt Count 176 (130-400) K/uL MPV 9.8 (7.4-10.4) fL Immature Gran % (Auto) 0.2 % Neut % (Auto) 70.9 % Lymph % (Auto) 16.2 % [place] % (Auto) 9.5 % Eos % (Auto) 2.7 % Baso % (Auto) 0.5 % Immature Gran # (Auto) 0.01 (0.00-0.02) K/uL Neut # (Auto) 3.15 (1.4-6.5) K/uL Lymph # (Auto) 0.72 L (1.2-3.4) K/uL [place] # (Auto) 0.42 (0.11-0.59) K/uL Eos # (Auto) 0.12 (0-0.5) K/uL Baso # (Auto) 0.02 (0-0.2) K/uL POC D-Dimer > 450 H* (0-450) ng/mlFEU Sodium 143 (136-145) mmol/L Potassium 3.9 (3.5-5.1) mmol/L Chloride 107 (98-107) mmol/L Carbon Dioxide 28 (21-32) mmol/L Anion Gap 8.0 (3-11) BUN 23 H (7-18) mg/dl Creatinine 0.90 (0.6-1.2) mg/dl Est Cr Clr Drug Dosing 44.2 ml/min Est GFR ( Amer) 65.7 Est GFR (Non-Af Amer) 56.7 BUN/Creatinine Ratio 25.3 H (10-20) Glucose 206 H (70-99) mg/dl Calcium 9.0 (8.5-10.1) mg/dl Phosphorus 3.3 (2.5-4.9) mg/dl Magnesium 2.0 (1.8-2.4) mg/dl Total Bilirubin 0.4 (0.2-1) mg/dl AST 22 (15-37) U/L ALT 20 (12-78) U/L Alkaline Phosphatase 75 (45-117) U/L Troponin I 0.039 (0-0.045) ng/ml Total Protein 6.7 (6.4-8.2) gm/dl Albumin 3.5 (3.4-5.0) gm/dl Globulin 3.2 (2.5-4.0) gm/dl Albumin/Globulin Ratio 1.1 (0.9-2) Lipase 144 (73-393) U/L Imaging Data Radiologist's Impression: Radiology results as stated below per my review and the radiologist's interpretation: SINGLE VIEW CHEST CLINICAL HISTORY: Atypical chest pain. FINDINGS: An AP, portable, upright chest radiograph is compared to study dated 02/15/2018. The examination is degraded by portable technique and patient rotation. There is a large hiatal hernia. This obscures the cardiac silhouette. There is atherosclerotic calcification of the thoracic aorta. The pulmonary vasculature is noncongested. Chronic interstitial thickening is similar to previous. There is bibasilar atelectasis. No airspace consolidation or large pleural effusion is identified. No pneumothorax is seen. The skeletal structures are osteopenic. The bony thorax is grossly intact. Degenerative change and mild scoliosis are noted in the thoracic spine. IMPRESSION: 1. There is no acute cardiopulmonary abnormality. 2. Large hiatal hernia. Electronically signed by: Salazar Huang M.D. 01/26/2019 9:[address] ANGIOGRAM OF THE CHEST CLINICAL HISTORY: Dyspnea. Atypical chest pain. COMPARISON STUDY: Chest x-ray dated 01/26/2019. Abdominal CT dated 08/13/2014. TECHNIQUE: Following the IV administration of 98 cc of Optiray 320, CT angiogram of the chest was performed from the upper abdomen to the thoracic inlet utilizing the pulmonary embolus protocol. Images are reviewed in the axial, sagittal, and coronal planes. 3-D MIPS images are created and assessed. IV contrast was administered without complication. A dose lowering technique was utilized adhering to the principles of ALARA. CT DOSE: 448.15 mGy.cm FINDINGS: Thyroid: Imaged portions of the thyroid gland are normal in size and attenuati on. Thoracic aorta: There is atherosclerotic calcification of the thoracic aorta, which is normal in caliber and demonstrates bovine arch anatomy. No dissection is seen. Pulmonary vasculature: The pulmonary trunk is normal in caliber. There are no filling defects identified in main, lobar, or segmental pulmonary branches to suggest pulmonary embolus. Heart: The heart is normal in size and without pericardial effusion. The coronary arteries are densely calcified. Lungs and pleural spaces: There is bibasilar scarring/atelectasis. No airspace consolidation or pleural effusion is seen. The trachea and central airways are patent. Mild diffuse peripheral bronchial thickening is noted. There is a 7 mm nodule at the right lung base seen on image 110. A 4 mm right lower lobe pulmonary nodule is seen on image #152. Additional smaller nodules are noted. These are unchanged dating back to 2014 and of doubtful significance. Mediastinum: There is no mediastinal lymphadenopathy. Margaret: Clear. Axillae: There is no axillary lymphadenopathy. Upper abdomen: There is a 5 cm cyst identified in the left hepatic lobe. There is a large hiatal hernia, with the majority of the stomach located in the thoracic cavity. The hiatal hernia also contains the mid to distal pancreas. Skeletal structures: The skeletal structures are osteopenic. No lytic or blastic bony lesions are seen. Degenerative change and mild kyphoscoliosis are noted in the thoracic spine. IMPRESSION: 1. There is no evidence of pulmonary embolus in the main, lobar, or segmental pulmonary arteries. 2. Large hiatal hernia. 3. There is no airspace consolidation or pleural effusion. 4. Mild diffuse peribronchial thickening suggests reactive air disease. Clinical correlation will be required. 5. Additional findings as above. Electronically signed by: Salazar Huang M.D. 01/26/2019 12:11 PM ECG Data Attestation: I personally reviewed and interpreted this ECG as follows: Indication: chest pain Rate (beats per minute): 94 Rhythm: sinus rhythm Findings: + other (normal axis) and + T-wave inversion (Lateral and high lateral leads) Comparison ECG Date: from (12/27/15) Change: the following changes noted (TWI is new in the lateral and high lateral leads) Blood Pressure Blood Pressure Findings: Elevated blood pressure Blood Pressure Disposition: further management by hospitalist MDM Narrative Ancillary records reviewed/Prior records reviewed. Triage nursing summary reviewed. The patient is an 88 year old white female w/ PMHx of DM who presents to the ED w/ CC of rib pain beginning yesterday. Differential: Cardiac Ischemia (STEMI, NSTEMI, Unstable Angina, etc), Aortic Dissection, Arrhythmia, Pulmonary Embolism, Pneumonia, Pneumothorax, MSK, Infectious, Pericarditis/Myocarditis, Esophageal Rupture, Gastrointestinal, amongst other pathologies entertained. Patient was seen and evaluated the bedside. The patient reportedly did have a fall about a week ago and they are concerned about possible rib fractures. Patient does not complain of any pleuritic pain but the patient is a chest pressure. It was apparently ongoing all last evening. Nothing made it better or worse. No prior history of heart or lung disease. Patient does have a known history of diabetes and a large hiatal hernia. The patient was apparently on a riding mower yesterday and did have this chest pressure also. Patient did have blood work completed along with EKG and chest x-ray she also did have a d-dimer obtained as the patient was borderline hypoxic in triage at 88% but in the room she was 90 to 93% on room air. Patient denies infectious symptoms or cough fevers or chills. Patient is a non-smoker. Patient blood work shows an elevated d-dimer which is a normal H&H and and negative troponin. Patient's EKG does show new T wave inversions in the lateral high lateral leads. The patient does not have any active chest pain. Patient did have a CT angios of the chest ordered. Patient CT does not show any evidence of PE. The patient may have some peribronchial thickening consistent with reactive airway disease. The patient did not have wheezing on exam. DuoNeb was ordered as well as a full dose aspirin. I did speak the on-call hospitalist given the concern for some borderline hypoxia and associated chest pressure with EKG changes. Patient does not have any active chest pain. Patient was admitted to the medicine service. Impression & Plan Atypical chest pain, Hypoxia Discharge Plan Visit Data Chief Complaint: Rib Injury/Pain Stated Complaint: FALL, PRESSURE IN CHEST FROM MOWING ED Provider: John Varela Discharge Problem: Atypical chest pain, Hypoxia Patient Disposition: Being Evaluated by Hospitalist Forms Stand Alone Forms: My [facility] [employer] Prescriptions Prescriptions: No Action multivitamin Tablet 1 tab PO QAM RF: 0 losartan [Cozaar] 50 mg tablet 50 mg PO QAM RF: 0 metformin [Glucophage] 500 mg tablet 500 mg PO BID RF: 0 pyridoxine (vitamin B6) 25 mg Tablet 25 mg PO QAM RF: 0 aspirin [Aspir-Low] 81 mg Tablet,Delayed Release (Dr/Ec) 81 mg PO DAILY RF: 0 glipizide [Glucotrol] 5 mg tablet 2.5 mg PO BID RF: 0 magnesium oxide 200 mg Tablet,Chewable 100 mg PO QAM RF: 0 Referrals Referrals: Issac Brito MD [Primary Care Provider] - The scribe's documentation has been prepared under my direction and personally reviewed by me in its entirety. I confirm that the note above accurately reflects all work, treatment, procedures, and medical decision making performed by me.
[2019-01-26] MEDS ORDERED: GLUCOSE 40% GEL 15 GM TUBE PO PRN (14:19)
[2019-01-26] MEDS ORDERED: GLUCOSE 10 TABS/TUBE PO PRN (14:19)
[2019-01-26] MEDS ORDERED: GLUCAGON FOR INJ 1 MG VIAL SQ PRN (14:19)
[2019-01-26] MEDS ORDERED: ACETAMINOPHEN 325 MG TAB PO PRN (14:19)
[2019-01-26] MEDS ORDERED: CARBOHYDRATES FOR HYPOGLYCEMIA PO PRN (14:19)
[2019-01-26] MEDS ORDERED: LEVALBUTEROL HCL 1.25 MG/3 ML NEB NEB PRN (14:19)
[2019-01-26] MEDS ORDERED: ONDANSETRON INJ 2 MG/ML 2 ML VIAL IV PRN (14:19)
[2019-01-26] MEDS ORDERED: DEXTROSE 50% 50 ML SYRINGE IV PRN (14:19)
[2019-01-26 15:14] LABS: Prothrombin Time 10.2 Seconds (9.0-12.0)
[2019-01-26] MEDS: INSULIN ASPART 100 UNITS/ML 3 ML PEN SC SCH ×2 (17:36→21:12)
[2019-01-26] MEDS ORDERED: METOPROLOL TARTRATE 1 MG/ML VIAL IV PRN (17:44)
[2019-01-26] MEDS ORDERED: LORazepam 0.5 MG TAB PO ONE (17:44)
[2019-01-26] MEDS: HEPARIN SOD 5,000 UNIT/0.5 ML VIAL SQ SCH (21:12)
[2019-01-27 06:57] LABS: Hematocrit (blood only) 39.6 % (37-47); Hemoglobin 13.8 g/dL (12.0-16.0); Mean Corpuscular Hgb Conc 34.8 g/dL (32-36); Mean Corpuscular Volume 90.4 fL (80-100); Mean Platelet Volume 9.6 fL (7.4-10.4); Platelet Count 160 K/uL (130-400); RDW Coefficient of Variation 13.3 % (11.5-14.5); Red Blood Count 4.38 M/uL (4.2-5.4); White Blood Count 4.41 K/uL (4.8-10.8)
[2019-01-27 07:39] LABS: BUN Creatinine Ratio 22.9 (10-20); Calcium 8.4 mg/dl (8.5-10.1); Creatinine Clr Calc Pharmacy 46.5 ml/min; Est GFR (African American) 69.4; Est GFR (Non-African American) 59.9; Potassium 4.5 mmol/L (3.5-5.1)
[2019-01-27 08:32] LABS: Estimated Average Glucose 143 mg/dl; Hemoglobin A1C 6.6 % (4.5-5.6)
[2019-01-27] MEDS ORDERED: LOSARTAN POTASSIUM 50 MG TAB PO SCH (09:00)
[2019-01-27] MEDS ORDERED: ASPIRIN 81 MG ECTAB PO SCH (09:00)
--- NOTE | 2019-01-27 09:27 | Cardiology Consultation ---
Date of Consultation January 27, 2019 Assessment & Plan (1) CAD (coronary artery disease): Ms. Wesley is an 88 year old female with a past medial history of Diabetes Mellitus, Hypertension, CVA, and large Hiatal Hernia who presented with somewhat Atypical Chest Tightness lasting approximately 24 hours which does not sound like ACS -- but she has strong evidence of CAD (Elevated Troponin I, EKG changes, and calcified coronary arteries on CTA). Fortunately, she is completely asymptomatic and her Echocardiogram shows Normal Wall Motion and Normal LV Systolic Function. Therefore, after a long discussion with the patient regarding our findings -- we and the patient agree with pursuing Medical Management of her CAD. -- Begin Metoprolol Succinate ER 25 mg daily. -- Begin Atorvastatin 40 mg daily. -- Continue Aspirin 81 mg daily. -- Continue Losartan 50 mg daily. -- Ambulate in hallway with nurse standby and assess for any symptoms. -- If patient asymptomatic with ambulation she may be safely discharged to home. -- Follow up with [facility] Cardiology / Edi Fonseca PA-C on 02/05/2019 at 10:30 am. Present on Admission?: Yes (2) Hypertension: -- Continue Losartan 50 mg PO daily. -- Add Metoprolol Succinate ER 25 mg daily to further treat hypertension, for CAD and LVH. -- Maintain a low salt, heart healthy diet. Present on Admission?: Yes (3) LVH (left ventricular hypertrophy): Suspect that uncontrolled hypertension and LVH contributed to her Troponin elevation. -- LVH on Echocardiogram likely secondary to longstanding hypertension and borderline aortic stenosis. -- Continue Losartan 50 mg daily. -- Begin Metoprolol Succinate ER 25 mg daily. -- Begin Atorvastatin 40 mg for CAD, Atherosclerosis, and to slow progression of aortic valve disease. Supervising Physician Co-Signing Physician Notes Matty Cantu MD History of Present Illness Reason for Consultation: -- Chest Tightness. -- Elevated Troponin I Requesting Physician: Elizabeth Arredondo DO Attending Physician: Casey Cantu MD History of Present Illness Ms. Wesley is an 88 year old female with a past medial history of Diabetes Mellitus, Hypertension, CVA, and large Hiatal Hernia. Cardiology was consulted due to her chest pressure and tightness. 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 After she was done, she went back into her home and began to feel some generalized anterior chest tightness without radiation and without associated symptoms. She specifically denies any associated nausea, vomiting, diaphoresis, or dyspnea. She was "aware" of this chest tightness for approximately 24 hours in total. This symptom was continuous -- was not worsened with exertion and was not pleuritic. She then decided to come to the Emergency Department to be evaluated. Her symptoms improved after she received a nebulizer treatment in the Emergency Department. She thought that her chest discomfort may have been due to a broken rib, as she fell last Sunday but did not recall striking her chest wall -- but her symptoms were similar to what she had when she fell and broke a rib last year. At home, she states she does not experience shortness of breath, palpitations, orthopnea, PND, lightheadedness, near-syncope or syncope. She has a difficult time sleeping at night because of her hiatal hernia and she sometimes becomes aware of her breathing. She states she was always very active until she had her stroke three years ago. Since then she states her activity level never returned to her "normal" level. However, she has begun to increase her activity by doing things around her farm. Currently, she is sitting in her chair reading a book. She states she is feeling well and has not had any occurrence of her chest tightness. Patient's initial EKG showed lateral T wave inversion which is not present on today's EKG. Her initial Troponin I was 0.039 and subsequently trended up to 0.049 ng/ml. Additionally -- her CTA of the Chest showed heavily calcified c oronary arteries. Allergies Allergy/AdvReac Type Severity Reaction Status Date / Time Penicillins Allergy Unknown CHILDHOOD Verified 01/26/19 11:05 ALLERGY Home Medications Home Medications Medication Instructions Recorded Confirmed Type aspirin [Aspir-Low] 81 mg PO DAILY 01/26/19 01/26/19 History glipizide [Glucotrol] 2.5 mg PO BID 01/26/19 01/26/19 History losartan [Cozaar] 50 mg PO QAM 01/26/19 01/26/19 History magnesium oxide 100 mg PO QAM 01/26/19 01/26/19 History metformin [Glucophage] 500 mg PO BID 01/26/19 01/26/19 History multivitamin 1 tab PO QAM 01/26/19 01/26/19 History pyridoxine (vitamin B6) 25 mg PO QAM 01/26/19 01/26/19 History atorvastatin 40 mg PO QAM #30 tab 01/27/19 Rx metoprolol succinate 25 mg PO QAM #30 tab 01/27/19 Rx Patient History Medical History Diabetes mellitus Hiatal hernia Hypertension Family History Other Heart disease Social History Preferred Language: [place]inamese Communication Ability: Effective Interventional Pain Physician Required: No Beliefs That Will Affect Care: None marital status: / Current Living Situation: Family Current Living Situation Comment: own home with dtr Feels Safe at Home: Yes Safety Concerns: Feels Safe At This Time Smoking Status: Never smoker Do You Dip or Chew Tobacco: No Hx Alcohol Use: No Hx Substance Use: No Review of Systems Review of Systems: All systems reviewed & are unremarkable except as noted in HPI & below Physical Exam Physical Exam: GENERAL: Patient is in no acute distress. HEENT: Head is atraumatic, normocephalic. EOM's intact. Facies symmetric. No perioral cyanosis. NECK: No JVD. Carotid upstrokes + 2 bilaterally without bruits. JVP is at the level of the clavicle sitting upright. CHEST and LUNGS: Clear to auscultation throughout all lung poe. No wheezes, rales, or rhonchi. CVS: S1 and S2 are regular with a 2/6 basal systolic murmur. No gallops, or rubs. PMI is nondisplaced. No lifts, heaves, or thrills. No abdominal aortic or renal bruits. ABDOMINAL EXAM: Bowel sounds are present. No masses, organomegaly, or tenderness. EXTREMITIES: No clubbing or cyanosis. Trace bilateral lower extremity edema. Intact posterior tibial and radial pulses. NEUROLOGIC EXAM: Patient is awake, alert, and oriented. Pleasant and cooperative. Answers questions appropriately. Speech is clear. EKG 01/27/2019: -- NSR at 67 bpm with a 1st degree AV block, LVH by voltage criteria. -- Compared to 01/26/2019 tracing -- lateral T wave abnormality has resolved. Results & Data Vital Signs (Past 12 Hours) Vital Signs Temp Pulse Pulse Resp BP BP Pulse Ox 05/06/19 07:35 36.7 C 62 18 187/77 H 92 01/27/19 03:36 36.4 C L 75 18 130/65 93 01/27/19 00:14 36.7 C 88 16 150/73 H 94 Laboratory Results Laboratory Results - last 24 hr 01/26/19 01/26/19 01/26/19 10:03 10:03 10:03 WBC 4.44 L RBC 4.71 Hgb 14.5 Hct 42.6 MCV 90.4 MCH 30.8 MCHC 34.0 RDW Std Deviation 43.4 RDW Coeff of [place] 13.1 Plt Count 176 MPV 9.8 Immature Gran % (Auto) 0.2 Neut % (Auto) 70.9 Lymph % (Auto) 16.2 [place] % (Auto) 9.5 Eos % (Auto) 2.7 Baso % (Auto) 0.5 Immature Gran # (Auto) 0.01 Neut # (Auto) 3.15 Lymph # (Auto) 0.72 L [place] # (Auto) 0.42 Eos # (Auto) 0.12 Baso # (Auto) 0.02 PT 10.2 INR 1.0 POC D-Dimer Sodium 143 Potassium 3.9 Chloride 107 Carbon Dioxide 28 Anion Gap 8.0 BUN 23 H Creatinine 0.90 Est Cr Clr Drug Dosing 44.2 Est GFR ( Amer) 65.7 Est GFR (Non-Af Amer) 56.7 BUN/Creatinine Ratio 25.3 H Glucose 206 H POC Glucose Estimat Average Glucose Hemoglobin A1c Calcium 9.0 Phosphorus 3.3 Magnesium 2.0 Total Bilirubin 0.4 AST 22 ALT 20 Alkaline Phosphatase 75 Troponin I 0.039 Total Protein 6.7 Albumin 3.5 Globulin 3.2 Albumin/Globulin Ratio 1.1 Triglycerides Cholesterol LDL Cholesterol, Calc VLDL Cholesterol, Calc HDL Cholesterol Cholesterol/HDL Ratio Lipase 144 01/26/19 01/26/19 01/26/19 10:11 14:22 16:13 WBC RBC Hgb Hct MCV MCH MCHC RDW Std Deviation RDW Coeff of [place] Plt Count MPV Immature Gran % (Auto) Neut % (Auto) Lymph % (Auto) [place] % (Auto) Eos % (Auto) Baso % (Auto) Immature Gran # (Auto) Neut # (Auto) Lymph # (Auto) [place] # (Auto) Eos # (Auto) Baso # (Auto) PT INR POC D-Dimer > 450 H* Sodium Potassium Chloride Carbon Dioxide Anion Gap BUN Creatinine Est Cr Clr Drug Dosing Est GFR ( Amer) Est GFR (Non-Af Amer) BUN/Creatinine Ratio Glucose POC Glucose 127 H 123 H Estimat Average Glucose Hemoglobin A1c Calcium Phosphorus Magnesium Total Bilirubin AST ALT Alkaline Phosphatase Troponin I Total Protein Albumin Globulin Albumin/Globulin Ratio Triglycerides Cholesterol LDL Cholesterol, Calc VLDL Cholesterol, Calc HDL Cholesterol Cholesterol/HDL Ratio Lipase 01/26/19 01/26/19 01/27/19 18:39 20:34 06:46 WBC 4.41 L RBC 4.38 Hgb 13.8 Hct 39.6 MCV 90.4 MCH 31.5 MCHC 34.8 RDW Std Deviation 44.0 RDW Coeff of [place] 13.3 Plt Count 160 MPV 9.6 Immature Gran % (Auto) Neut % (Auto) Lymph % (Auto) [place] % (Auto) Eos % (Auto) Baso % (Auto) Immature Gran # (Auto) Neut # (Auto) Lymph # (Auto) [place] # (Auto) Eos # (Auto) Baso # (Auto) PT INR POC D-Dimer Sodium Potassium Chloride Carbon Dioxide Anion Gap BUN Creatinine Est Cr Clr Drug Dosing Est GFR ( Amer) Est GFR (Non-Af Amer) BUN/Creatinine Ratio Glucose POC Glucose 149 H Estimat Average Glucose Hemoglobin A1c Calcium Phosphorus Magnesium Total Bilirubin AST ALT Alkaline Phosphatase Troponin I 0.042 Total Protein Albumin Globulin Albumin/Globulin Ratio Triglycerides Cholesterol LDL Cholesterol, Calc VLDL Cholesterol, Calc HDL Cholesterol Cholesterol/HDL Ratio Lipase 01/27/19 01/27/19 01/27/19 06:46 06:46 06:46 WBC RBC Hgb Hct MCV MCH MCHC RDW Std Deviation RDW Coeff of [place] Plt Count MPV Immature Gran % (Auto) Neut % (Auto) Lymph % (Auto) [place] % (Auto) Eos % (Auto) Baso % (Auto) Immature Gran # (Auto) Neut # (Auto) Lymph # (Auto) [place] # (Auto) Eos # (Auto) Baso # (Auto) PT INR POC D-Dimer Sodium 142 Potassium 4.5 D Chloride 108 H Carbon Dioxide 31 Anion Gap 3.0 BUN 20 H Creatinine 0.86 Est Cr Clr Drug Dosing 46.5 Est GFR ( Amer) 69.4 Est GFR (Non-Af Amer) 59.9 BUN/Creatinine Ratio 22.9 H Glucose 137 H POC Glucose Estimat Average Glucose 143 Hemoglobin A1c 6.6 H Calcium 8.4 L Phosphorus Magnesium Total Bilirubin AST ALT Alkaline Phosphatase Troponin I 0.049 H* Total Protein Albumin Globulin Albumin/Globulin Ratio Triglycerides 122 Cholesterol 199 LDL Cholesterol, Calc 123 VLDL Cholesterol, Calc 24 HDL Cholesterol 52 Cholesterol/HDL Ratio 4 Lipase 01/27/19 07:25 WBC RBC Hgb Hct MCV MCH MCHC RDW Std Deviation RDW Coeff of [place] Plt Count MPV Immature Gran % (Auto) Neut % (Auto) Lymph % (Auto) [place] % (Auto) Eos % (Auto) Baso % (Auto) Immature Gran # (Auto) Neut # (Auto) Lymph # (Auto) [place] # (Auto) Eos # (Auto) Baso # (Auto) PT INR POC D-Dimer Sodium Potassium Chloride Carbon Dioxide Anion Gap BUN Creatinine Est Cr Clr Drug Dosing Est GFR ( Amer) Est GFR (Non-Af Amer) BUN/Creatinine Ratio Glucose POC Glucose 130 H Estimat Average Glucose Hemoglobin A1c Calcium Phosphorus Magnesium Total Bilirubin AST ALT Alkaline Phosphatase Troponin I Total Protein Albumin Globulin Albumin/Globulin Ratio Triglycerides Cholesterol LDL Cholesterol, Calc VLDL Cholesterol, Calc HDL Cholesterol Cholesterol/HDL Ratio Lipase Diagnostic Findings Echocardiogram 01/27/2019: -- Normal left ventricular systolic function with an EF of 55%-60%, no regional wall motion abnormalities. -- Mild LVH. -- Aortic valve sclerosis with borderline mild aortic stenosis. -- Mild mitral regurgitation. -- Mild tricuspid regurgitation. CT angiogram on 01/26/2019: -- Heavily calcified coronary arteries. -- Atherosclerotic calcification of thoracic aorta. -- Large hiatal hernia. -- Mild diffuse peribronchial thickening suggests reactive air disease. CXR 01/26: -- There is no acute cardiopulmonary abnormality. -- Large hiatal hernia. (1) CAD (coronary artery disease) Associated angina: angina presence unspecified Coronary Disease-Associated A rtery/Lesion type: unspecified vessel or lesion type [place] vs. transplanted heart: [place] heart Qualified Code(s): I25.10 - Atherosclerotic heart disease of [place] coronary artery without angina pectoris (2) Hypertension Hypertension type: essential hypertension Qualified Code(s): I10 - Essential (primary) hypertension
[2019-01-27] MEDS ORDERED: METOPROLOL SUCC 25MG EXT REL TAB PO SCH (09:30)
[2019-01-27] MEDS: INSULIN ASPART 100 UNITS/ML 3 ML PEN SC SCH ×2 (09:31→11:47)
[2019-01-27] MEDS: HEPARIN SOD 5,000 UNIT/0.5 ML VIAL SQ SCH (09:33)
[2019-01-27] MEDS ORDERED: ATORVASTATIN 40 MG TAB PO SCH (09:45)
[2019-01-27 11:35] VITALS: BP 158/69; TEMP 97.9; O2SAT 94
--- NOTE | 2019-01-27 14:10 | Discharge Summary ---
Date of Service January 27, 2019 Admission HPI Per Admitting Provider 88-year-old female presents to the hospital with concerns of chest discomfort. This is in the context of her having a fairly significant hiatal hernia which causes her to sleep in different positions at night. Patient does not have reflux associate with a hiatal hernia but she says if she sleeps flat her back she notices shortness of breath. The patient feels a heaviness or awareness of her chest not true chest pressure. Is not worsened by exertion and there are no associated symptoms such as diaphoresis nausea or radiation of her discomfort. Patient also has recently had a bronchitis episode possibly 1 month ago and this was treated with [id number] medications. In the emergency department it was noted that she had some perhaps changes on CT scan and she was given an aspirin and a DuoNeb at the same time. She said after those therapies her awareness of her chest discomfort improved. 1 month ago when she saw a walk-in clinic for bronchitis they told her she had a murmur which she was unaware of. This is confirmed on exam today does sound to be aortic stenosis by the location. Her initial EKG did show some lateral T wave changes in her initial troponin although normal was not less than 0.015 it was actually 0.039 Patient is currently resting comfortably she is agreeable to observation for further cardiac risk stratification Principal Diagnosis Pt is doing quite well. She has had no return of her chest pain or SOB. She is eating without issue. Pt denies fever, abd pain, n/v/c/d, LE pain or swelling. She would like to go home. Discharge Exam Constitutional WD/WN, vitals as above Eyes normal visual poe by confrontation and + anicteric sclerae Neck normal visual inspection and trachea midline Respiratory normal respiratory effort, lungs clear to auscultation Cardiovascular Rate/Rhythm: regular rate and regular rhythm Gastrointestinal (Abdomen) Inspection/Auscultation: abdomen not distended Percussion/Palpation: abdomen soft; abdomen nontender Musculoskeletal Head/Neck/Chest: normocephalic and head atraumatic Skin no rashes, warm and dry Neurologic awake; not confused Speech / Cognition: normal speech Psychiatric A+Ox3, euthymic affect Discharge Data Allergies Allergy/AdvReac Type Severity Reaction Status Date / Time Penicillins Allergy Unknown CHILDHOOD Verified 01/26/19 11:05 ALLERGY Consultations 01/26/19 12:27 ED Decision to Admit Stat 01/26/19 14:19 Consult Cardiology Routine Consult Case Management - Discharge Planning Routine Ordered Studies 01/26/19 10:49 CT angio chest PE protocol Stat Hospital Course (1) Chest pain: Patient has chest discomfort that was associate with a fall however she does have lateral T wave inversions in her EKG, she has a low normal troponin level. Pt was monitored on tele No other changes noted and no return of chest pain ECHO was noted with EF 55-60% and LVH Cardiology met with pt and discussed conservative management as noted Statin added for LDL of 123 in a CVA pt addition of metoprolol for further BP control Aspirin 81mg Of note, CTA shows large amount of calcification of major cardiac arteries. This is possible causes some pain with contraction during exertion. (2) Diabetes mellitus: Resume home meds A1c pending at d/c (3) Hypertension: Patient typically is on losartan 50 this will be continued is also renal protective with her diabetes Metorolol added for better BP control (4) DVT prophylaxis: DVT prevention with subcutaneous heparin (5) Reactive airway disease: This is certainly a clinical diagnosis we will add as needed Xopenex and encourage her to have follow-up as an outpatient Total Time Total Time Spent Total Time Spent (In Minutes): >30 minutes Discharge Plan Discharge Items Patient Disposition: Home - Self-Care Reason For Visit: CHEST PAIN Discharge Diagnosis: chest pain Discharge Goals: Decrease discomfort, Improve disease control and Improve function Activity: Resume your previous activity Non-emergency contact: Primary Care Provider Call non-emergency contact if: you have any medication questions, your symptoms worsen and your pain is not controlled Follow-up/Referrals: Issac Brito MD [Primary Care Provider] - Diet: Low Sodium (2gm) Addtl Provider Instructions: You should get a blood pressure cuff and monitor your blood pressure. You should check it daily until you see your PCP. Write down your readings and take them with you to your PCP appt. After that, you should check your blood pressure 2-3 times a week. Prescriptions: New atorvastatin 40 mg Tablet 40 mg PO QAM Qty: 30 RF: 0 metoprolol succinate 25 mg Tablet Extended Release 24 Hr 25 mg PO QAM Qty: 30 RF: 0 Continued multivitamin Tablet 1 tab PO QAM RF: 0 losartan [Cozaar] 50 mg tablet 50 mg PO QAM RF: 0 metformin [Glucophage] 500 mg tablet 500 mg PO BID RF: 0 pyridoxine (vitamin B6) 25 mg Tablet 25 mg PO QAM RF: 0 aspirin [Aspir-Low] 81 mg Tablet,Delayed Release (Dr/Ec) 81 mg PO DAILY RF: 0 glipizide [Glucotrol] 5 mg tablet 2.5 mg PO BID RF: 0 magnesium oxide 200 mg Tablet,Chewable 100 mg PO QAM RF: 0 Stand-Alone Forms: [facility]/Other Patient Handouts: Angina, Hypertension Control, Hyperglycemia, Beta Bennie Discharge Orders: Discharge Order (Routine); Ordered 01/27/19 Ordered By: Elizabeth Arredondo Admission Data Admit Date/Time: 01/26/19 12:50 Attending Provider: Elizabeth Arredondo Admit Provider: Isaiah Chapa Primary Care Provider: Issac Brito Other Providers: Isaiah Chapa ; Jeff Ocasio Service: Telemetry Other Interventions: Discharge Summary Assessment (RN) Last Done: 01/27/19 14:40 Pending Studies at Discharge: No DC Date/Time DO NOT enter until pt leaves facility: 01/27/19 15:52
[2019-01-27 14:42] VITALS: PULSE 75
== END 2019-01-27 15:52 | disposition home or self-care (01) ==
LOC: ED 09:25 → 2S 09:25 → SUATTDRO 12:50 → 2S 13:37

== ENCOUNTER 2019-06-21 11:14 | Observation (INO) ==
--- NOTE | 2019-06-21 13:11 | XRay Report ---
XR chest 1V portable HISTORY: Dyspnea COMPARISON: Chest 01/26/2019. FINDINGS: No pneumothorax. The heart remains enlarged. There is a large hiatus hernia, unchanged. Bib asilar densities are nonspecific but favor subsegmental atelectasis. There is mild central pulmonary vascular congestion without overt edema. There may be a small left pleural effusion. IMPRESSION: 1. Cardiomegaly with mild congestive change and a small left pleural effusion. 2. Bibasilar linear densities favor subsegmental atelectasis. 3. Large hiatus hernia, unchanged. Electronically signed by: Jaxson Albert M.D. 06/21/2019 1:10 PM
[2019-06-21 13:13] LABS: Basophils # (auto) 0.02 K/uL (0-0.2); Basophils % (auto) 0.3 %; Eosinophils % (auto) 1.3 %; Hematocrit (blood only) 37.6 % (37-47); Hemoglobin 12.6 g/dL (12.0-16.0); Immature Granulocytes # (auto) 0.04 K/uL (0.00-0.02); Immature Granulocytes % (auto) 0.5 %; Lymphocytes # (auto) 0.82 K/uL (1.2-3.4); Lymphocytes % (auto) 10.9 %; Mean Corpuscular Hemoglobin 30.3 pg (25-34); Mean Corpuscular Hgb Conc 33.5 g/dL (32-36); Mean Corpuscular Volume 90.4 fL (80-100); Mean Platelet Volume 9.8 fL (7.4-10.4); Monocytes # (auto) 0.94 K/uL (0.11-0.59); Monocytes % (auto) 12.5 %; Neutrophils # (auto) 5.62 K/uL (1.4-6.5); Neutrophils % (auto) 74.5 %; Platelet Count 198 K/uL (130-400); RDW Coefficient of Variation 13.3 % (11.5-14.5); RDW Standard Deviation 43.5 fL (36.4-46.3); Red Blood Count 4.16 M/uL (4.2-5.4); White Blood Count 7.54 K/uL (4.8-10.8)
[2019-06-21 13:32] LABS: Albumin Level 2.9 gm/dl (3.4-5.0); BUN Creatinine Ratio 27.9 (10-20); Calcium 8.7 mg/dl (8.5-10.1); Creatinine Clr Calc Pharmacy 51.6 ml/min; Est GFR (African American) 78.1; Est GFR (Non-African American) 67.4; Potassium 4.1 mmol/L (3.5-5.1)
[2019-06-21 13:37] LABS: Albumin Globulin Ratio 0.8 (0.9-2); Bilirubin,Total 0.5 mg/dl (0.2-1); Globulin 3.6 gm/dl (2.5-4.0); Total Protein 6.5 gm/dl (6.4-8.2); Troponin I 0.041 ng/ml (0-0.045)
[2019-06-21 13:39] LABS: Partial Thromboplastin Ratio 0.9; Partial Thromboplastin Time 23.1 Seconds (21.0-31.0); Prothrombin Time 10.4 Seconds (9.0-12.0)
[2019-06-21 15:40] LABS: Troponin I 0.045 ng/ml (0-0.045)
[2019-06-21] MEDS ORDERED: LEVOFLOXACIN/D5W 750 MG/150 ML BAG IV SCH (16:30)
[2019-06-21] MEDS ORDERED: MAGNESIUM HYDROXIDE SUSP 30 ML UDC PO PRN (16:48)
[2019-06-21] MEDS ORDERED: FUROSEMIDE 20 MG in SYRINGE 0 ML IV ONE (16:51)
[2019-06-21] MEDS ORDERED: FUROSEMIDE 40 MG/4 ML VIAL IV STA (17:04)
--- NOTE | 2019-06-21 18:35 | Emergency Department Note ---
Entered by Nuria Miles acting as a scribe for History of Present Illness General Chief complaint: Illness Stated complaint: CONGESTION Source: patient History of Present Illness Onset (ago): day(s) 10 Location: head (Congestion) Pain Consistency: + other (Worsening) Maximum Pain Intensity: 0 Quality: + other (Congestion) Relieved By: not by medication (Antitussive) Associated symptoms: + cough and + fever/chills; no chest pain, no shortness of breath and no other (dysuria) The patient is an 88 year old female with a history of DM, HTN and Hiatal hernia who is presenting to the Emergency Department complaining of worsening congestion starting 10 days ago. The patient reports that she is congested. She states that this started with a cough that was bringing up a yellow/whitish mucous. She states that she has felt hot and experienced chills but never took her temperature. She notes that she has been taking an over the counter antitussive that has not improved her symptoms. Does admit to some mild shortness of breath. She denies sore throat, abdominal pain dysuria, chest pain, abnormal bowel movements, smoking tobacco, history or COPD and history of asthma. Home Medications Home Medications Medication Instructions Recorded Confirmed Type aspirin [Aspir-Low] 81 mg PO DAILY 01/26/19 06/21/19 History glipizide [Glucotrol] 2.5 mg PO BID 01/26/19 06/21/19 History magnesium oxide 0 mg PO QAM 01/26/19 06/21/19 History metformin [Glucophage] 500 mg PO BID 01/26/19 06/21/19 History multivitamin 1 tab PO QAM 01/26/19 06/21/19 History pyridoxine (vitamin B6) 25 mg PO QAM 01/26/19 06/21/19 History atorvastatin 40 mg PO QAM #30 tab 01/27/19 06/21/19 Rx metoprolol succinate ER 25 mg 25 mg PO BID 05/23/19 06/21/19 History tablet,extended release 24 hr losartan 100 mg PO DAILY 06/21/19 06/21/19 History Allergies Allergy/AdvReac Type Severity Reaction Status Date / Time Penicillins Allergy Unknown CHILDHOOD Verified 06/21/19 13:14 ALLERGY Past Med/Surg History Medical History Diabetes mellitus Hiatal hernia Hypertension Family History Other Heart disease Social History Preferred Language: Sami Communication Ability: Effective Photoengraving Finisher Required: No Beliefs That Will Affect Care: None marital status: / Current Living Situation: Family Current Living Situation Comment: own home with dtr Feels Safe at Home: Yes Smoking Status: Never smoker Hx Alcohol Use: No Hx Substance Use: No Review of Systems See HPI for pertinent positives & negatives. and A total of 10 systems reviewed and were otherwise negative Physical Exam Vital Signs Vital Signs - 24 hr 06/21/19 11:18 06/21/19 12:48 06/21/19 14:26 Temperature 36.7 C 37.2 C Temperature Source Oral Oral Sepsis Recent Fever Within 48 Hours No Sepsis New/Unexplained Change in Mental Status No Sepsis Action Taken by Nursing No Action Required Pulse Rate 68 Pulse Rate [Right Finger] 61 63 Pulse Rhythm [Right Finger] Regular Pulse Strength [Right Finger] Normal Respiratory Rate 18 20 20 Respiratory Effort / Characteristics Non-Labored Spontaneous Non-Labored Spontaneous Respiratory Depth Normal Normal Respiratory Pattern Regular Regular Blood Pressure 148/73 H Blood Pressure [Right Arm] 162/77 H 180/79 H Blood Pressure Mean 98 Blood Pressure Mean [Right Arm] 105 112 Blood Pressure Position Sitting Blood Pressure Position [Right Arm] Lying Pulse Oximetry 92 94 93 Oxygen Delivery Method Room Air Room Air Room Air 06/21/19 14:59 06/21/19 16:40 Temperature Temperature Source Sepsis Recent Fever Within 48 Hours Sepsis New/Unexplained Change in Mental Status Sepsis Action Taken by Nursing Pulse Rate Pulse Rate [Right Finger] 59 L 57 L Pulse Rhythm [Right Finger] Pulse Strength [Right Finger] Respiratory Rate 20 20 Respiratory Effort / Characteristics Respiratory Depth Respiratory Pattern Blood Pressure Blood Pressure [Right Arm] 185/153 H 171/79 H Blood Pressure Mean Blood Pressure Mean [Right Arm] 163 109 Blood Pressure Position Blood Pressure Position [Right Arm] Pulse Oximetry 94 94 Oxygen Delivery Method GENERAL: Sitting up in bed, talking in full sentences, wearing glasses, alert, well nourished, no distress, non-toxic EYE EXAM: normal conjunctiva. OROPHARYNX: no exudate, no erythema, lips, buccal mucosa, and tongue normal and mucous membranes are moist NECK: supple, no nuchal rigidity, no adenopathy, non-tender LUNGS: Clear to auscultation. Normal chest wall mechanics HEART: no murmurs, S1 normal and S2 normal ABDOMEN: abdomen soft, non-tender, normo-active bowel sounds, no masses, no rebound or guarding. BACK: Back is symmetrical on inspection and there is no deformity, no midline tenderness, no CVA tenderness. SKIN: no rashes and no bruising UPPER EXTREMITIES: upper extremities are grossly normal. LOWER EXTREMITIES: No pitting edema. NEURO EXAM: Normal sensorium, cranial nerves II-XII grossly intact, normal speec h, no gross weakness of arms, no gross weakness of legs. Course ED COURSE: Vital signs were reviewed and showed hypertension. The patients medical record was reviewed The above diagnostic studies were performed and reviewed. ED treatments and interventions as stated above. 1242: The patient was evaluated in room A9B. A complete history and physical examination was performed. 1415: I updated the patient at this time. 1610: Upon reevaluation,I discussed my findings with the patient who understands and agrees with the treatment plan. Based on the patients age, coexisting illnesses, exam and lab findings the decision to treat as an inpatient was made. 1628: I discussed the patients case with Dr. Marce WOLF hospitalist. He will evaluate the patient for further management. The patient remained stable while under my care. The patient will be evaluated for further management. Consultations Consultation #1: I discussed the patients case with Dr. Marce WOLF hospitalist. He will evaluate the patient for further management. Time: 16:28 Administered Medications Levofloxacin/Dextrose (Levaquin/D5w) 750 mg in 150 mls @ 100 mls/hr IV Q24H [facility] Stop: 07/05/19 16:29 Last Infusion: 06/21/19 17:59 Dose: 0 mls/hr Documented by: [id number] Admin: 06/21/19 16:29 Dose: 100 mls/hr Documented by: [id number] Discontinued Medications Furosemide (Lasix) 20 mg IV NOW STA Stop: 06/21/19 17:05 Last Admin: 06/21/19 17:35 Dose: 20 mg Documented by: [id number] Medical Decision Making Differential Diagnosis Differential diagnoses includes but is not limited to pneumonia, bronchitis, COPD/Asthma exacerbation, pneumothorax, pulmonary embolism, congestive heart failure, acute coronary syndrome Medical Records Attestation: I reviewed the patient's medical records. Home Medications Current Medication List: was personally reviewed by me Laboratory Data Attestation: I reviewed the patient's lab results. Result diagrams: 06/21/19 12:58 06/21/19 13:00 Lab Results 06/21/19 06/21/19 06/21/19 Range/Units 12:58 12:58 13:00 WBC 7.54 (4.8-10.8) K/uL RBC 4.16 L (4.2-5.4) M/uL Hgb 12.6 (12.0-16.0) g/dL Hct 37.6 (37-47) % MCV 90.4 (80-100) fL MCH 30.3 (25-34) pg MCHC 33.5 (32-36) g/dL RDW Std Deviation 43.5 (36.4-46.3) fL RDW Coeff of [place]il[place] 13.3 (11.5-14.5) % Plt Count 198 (130-400) K/uL MPV 9.8 (7.4-10.4) fL Immature Gran % (Auto) 0.5 % Neut % (Auto) 74.5 % Lymph % (Auto) 10.9 % [place] % (Auto) 12.5 % Eos % (Auto) 1.3 % Baso % (Auto) 0.3 % Immature Gran # (Auto) 0.04 H (0.00-0.02) K/uL Neut # (Auto) 5.62 (1.4-6.5) K/uL Lymph # (Auto) 0.82 L (1.2-3.4) K/uL [place] # (Auto) 0.94 H (0.11-0.59) K/uL Eos # (Auto) 0.10 (0-0.5) K/uL Baso # (Auto) 0.02 (0-0.2) K/uL PT 10.4 (9.0-12.0) Seconds INR 1.0 (0.9-1.1) APTT 23.1 (21.0-31.0) Seconds PTT Ratio 0.9 Sodium 139 (136-145) mmol/L Potassium 4.1 (3.5-5.1) mmol/L Chloride 104 (98-107) mmol/L Carbon Dioxide 31 (21-32) mmol/L Anion Gap 4.0 (3-11) BUN 22 H (7-18) mg/dl Creatinine 0.78 (0.6-1.2) mg/dl Est Cr Clr Drug Dosing 51.6 ml/min Est GFR ( Amer) 78.1 Est GFR (Non-Af Amer) 67.4 BUN/Creatinine Ratio 27.9 H (10-20) Glucose 162 H (70-99) mg/dl Calcium 8.7 (8.5-10.1) mg/dl Total Bilirubin 0.5 (0.2-1) mg/dl AST 20 (15-37) U/L ALT 23 (12-78) U/L Alkaline Phosphatase 127 H (45-117) U/L Troponin I 0.041 (0-0.045) ng/ml NT-Pro-B Natriuret Pep (0-1800) pg/ml Total Protein 6.5 (6.4-8.2) gm/dl Albumin 2.9 L (3.4-5.0) gm/dl Globulin 3.6 (2.5-4.0) gm/dl Albumin/Globulin Ratio 0.8 L (0.9-2) 06/21/19 Range/Units 15:02 WBC (4.8-10.8) K/uL RBC (4.2-5.4) M/uL Hgb (12.0-16.0) g/dL Hct (37-47) % MCV (80-100) fL MCH (25-34) pg MCHC (32-36) g/dL RDW Std Deviation (36.4-46.3) fL RDW Coeff of [place] (11.5-14.5) % Plt Count (130-400) K/uL MPV (7.4-10.4) fL Immature Gran % (Auto) % Neut % (Auto) % Lymph % (Auto) % [place] % (Auto) % Eos % (Auto) % Baso % (Auto) % Immature Gran # (Auto) (0.00-0.02) K/uL Neut # (Auto) (1.4-6.5) K/uL Lymph # (Auto) (1.2-3.4) K/uL [place] # (Auto) (0.11-0.59) K/uL Eos # (Auto) (0-0.5) K/uL Baso # (Auto) (0-0.2) K/uL PT (9.0-12.0) Seconds INR (0.9-1.1) APTT (21.0-31.0) Seconds PTT Ratio Sodium (136-145) mmol/L Potassium (3.5-5.1) mmol/L Chloride (98-107) mmol/L Carbon Dioxide (21-32) mmol/L Anion Gap (3-11) BUN (7-18) mg/dl Creatinine (0.6-1.2) mg/dl Est Cr Clr Drug Dosing ml/min Est GFR ( Amer) Est GFR (Non-Af Amer) BUN/Creatinine Ratio (10-20) Glucose (70-99) mg/dl Calcium (8.5-10.1) mg/dl Total Bilirubin (0.2-1) mg/dl AST (15-37) U/L ALT (12-78) U/L Alkaline Phosphatase (45-117) U/L Troponin I 0.045 (0-0.045) ng/ml NT-Pro-B Natriuret Pep 422 (0-1800) pg/ml Total Protein (6.4-8.2) gm/dl Albumin (3.4-5.0) gm/dl Globulin (2.5-4.0) gm/dl Albumin/Globulin Ratio (0.9-2) Imaging Data Radiologist's Impression: Radiology results as stated below per my review and the radiologist's interpretation: XR chest 1V portable HISTORY: Dyspnea COMPARISON: Chest 01/26/2019. FINDINGS: No pneumothorax. The heart remains enlarged. There is a large hiatus hernia, unchanged. Bibasilar densities are nonspecific but favor subsegmental atelectasis. There is mild central pulmonary vascular congestion without overt edema. There may be a small left pleural effusion. IMPRESSION: 1. Cardiomegaly with mild congestive change and a small left pleural effusion. 2. Bibasilar linear densities favor subsegmental atelectasis. 3. Large hiatus hernia, unchanged. Electronically signed by: Jaxson Albert M.D. 06/21/2019 1:10 PM ECG Data Attestation: I personally reviewed and interpreted this ECG as follows: Indication: SOB/dyspnea Rate (beats per minute): 58 Rhythm: sinus bradycardia Findings: + other (Otherwise normal intervals for exception of 1st degree AV block. ), + 1st degree AV block and + left axis deviation; no PVC Comparison ECG Date: from (01/27/19) Change: no significant change Blood Pressure Blood Pressure Findings: Elevated blood pressure Blood Pressure Disposition: further management by hospitalist YAA Narrative Patient is an 88-year-old female who presents the ER for cough, congestion and some mild shortness of breath. IV was established blood work was obtained shows no significant leukocytosis or anemia. INR is unremarkable. BMP along with LFTs bilirubin was unremarkable. Troponin was initially 0.04 and trended up to 0.045. With this and his mild shortness of breath although EKG unchanged patient was given IV Levaquin and was discussed with the hospitalist for observation. Of note patient was fairly dyspneic with ambulation. Pulse ox was about 91% on room air. Observation note: Indication: Detectable troponin Patient, with neurodisease but she can not remember, was first seen at 1253 hrs and the observation time began at 1353 hrs and was necessary in order to determine ACS, demand ischemia and avoid unnecessary admission. Upon re- evaluation, 2.5 hours of observation revealed that the patient should be adm itted. Disposition date and time 1628 on 06/21/19 pt was admitted. Impression & Plan Bronchitis, Elevated troponin, Shortness of breath Discharge Plan Visit Data Chief Complaint: Illness Stated Complaint: CONGESTION ED Provider: Marquise Cooper Discharge Problem: Bronchitis, Elevated troponin, Shortness of breath Patient Disposition: Being Evaluated by Hospitalist The sandi's documentation has been prepared under my direction and personally reviewed by me in its entirety. I confirm that the note above accurately reflects all work, treatment, procedures, and medical decision making performed by me.
--- NOTE | 2019-06-21 19:01 | History & Physical Report ---
Date of Service June 21, 2019 Assessment & Plan (1) Chest congestion: 88 y/o F presenting with chest congestion, cough, and excessive sputum production over the last 5 days. Chest congestion: -uncertain etiology; CHF vs Pneumonia vs Bronchitis vs COPD -WBC 7.54 in ED -CXR (06/21): demonstrated cardiomegaly with mild congestive change and a small left pleural effusion; Bibasilar linear densities favor subsegmental atelectasis; Large hiatus hernia, unchanged. -Give 20mg Lasix IV now, repeat 20mg in AM -Given Levofloxacin IV in ED. Follow -BMP in AM Diabetes: -will hold metformin, and glipizide -start SSI, with basal bolus HTN: -will continue home losartan, and metoprolol LVH: -likely from uncontrolled HTN. -consider sleep study as outpatient HLD -atorvastatin Diet: carb consistent DVT ppx: not indicated at this time Code: Conditional: full resuscitative efforts, no mechanical ventilation (2) LVH (left ventricular hypertrophy): (3) Diabetes mellitus: (4) Bronchitis: (5) Shortness of breath: History of Present Illness Primary Care Provider: Issac Brito MD Ms. Wesley is a 88y/o female, with h/o DM, HTN and Hiatal hernia who is presented to the ED complaining of worsening congestion over the last 5 days; over this time has persistently felt congested, first noticed when she started to feel congested; she states that this started with a cough that was bringing up a yellow/whitish mucous, that she most noticed at night; recent sick contacts in Daughter who was seen in ED 10 days ago and diagnosed with bronchitis Over this illness tried some OTC cough suppressants without improvement of her symptoms. Allergies Allergy/AdvReac Type Severity Reaction Status Date / Time Penicillins Allergy Unknown CHILDHOOD Verified 06/21/19 13:14 ALLERGY Home Medications Home Medications Medication Instructions Recorded Confirmed Type aspirin [Aspir-Low] 81 mg PO DAILY 01/26/19 06/21/19 History glipizide [Glucotrol] 2.5 mg PO BID 01/26/19 06/21/19 History magnesium oxide 0 mg PO QAM 01/26/19 06/21/19 History metformin [Glucophage] 500 mg PO BID 01/26/19 06/21/19 History multivitamin 1 tab PO QAM 01/26/19 06/21/19 History pyridoxine (vitamin B6) 25 mg PO QAM 01/26/19 06/21/19 History atorvastatin 40 mg PO QAM #30 tab 01/27/19 06/21/19 Rx metoprolol succinate ER 25 mg 25 mg PO BID 05/23/19 06/21/19 History tablet,extended release 24 hr losartan 100 mg PO DAILY 06/21/19 06/21/19 History Past Med/Surg History Medical History Diabetes mellitus Hiatal hernia Hypertension Family History Other Heart disease Social History Preferred Language: Georgian Communication Ability: Effective Preventive Maintenance Coordinator Required: No Beliefs That Will Affect Care: None marital status: / Current Living Situation: Family Current Living Situation Comment: own home with dtr Other Information That Helps Us Care for You: No Feels Safe at Home: Yes Safety Concerns: Feels Safe At This Time Smoking Status: Never smoker Do You Dip or Chew Tobacco: No ; Second Hand Exposure: Yes ; Tobacco Cessation Education Requested by Patient: No Hx Alcohol Use: No Hx Substance Use: No Review of Systems Constitutional: + chills, + sweats and + fatigue; no fever and no weakness Eyes: no discharge and no worsening vision Ear, Nose, Mouth, Throat: + nasal congestion; no ear discharge, no nasal discharge and no nasal obstruction Respiratory: + cough, + dyspnea and + sputum production; no hemoptysis Cardiovascular: no chest pain, no orthopnea, no edema and no calf pain Gastrointestinal: no nausea and no vomiting Genitourinary: no urinary frequency, no urinary hesitancy and no urinary urgency Musculoskeletal: no limited range of motion, no myalgia and no muscle weakness Hematologic / Lymphatic: no lymphadenopathy Physical Exam Constitutional: WD/WN, vitals as above Eyes: PERRL, conjunctivae normal, anicteric sclerae EOM intact bilaterally ENMT: external ear and nose normal, oropharynx normal Respiratory: no respiratory distress and no labored breathing Auscultation: + diminished lung sounds (b/l lower lobes); no crackles, no rales and no wheezes Cardiovascular: Heart Sounds: normal S1 and normal S2; no gallop, no murmur and no cardiac rub Extremities: no calf tenderness and no edema Gastrointestinal (Abdomen): normal bowel sounds, soft, nontender, no hepatosplenomegaly Neurologic: CN's II-XI intact bilaterally and moves all extremities Psychiatric: A+Ox3, euthymic affect Lymphatic: no cervical lymphadenopathy Results & Data Vital Signs (Past 12 Hours) Vital Signs Temp Pulse Pulse Resp BP BP Pulse Ox 06/21/19 16:40 57 L 20 171/79 H 94 06/21/19 14:59 59 L 20 185/153 H 94 06/21/19 14:26 63 20 180/79 H 93 06/21/19 12:48 37.2 C 61 20 162/77 H 94 06/21/19 11:18 36.7 C 68 18 148/73 H 92 Laboratory Results 06/21/19 06/21/19 06/21/19 Range/Units 18:50 15:02 13:00 WBC (4.8-10.8) K/uL RBC (4.2-5.4) M/uL Hgb (12.0-16.0) g/dL Hct (37-47) % MCV (80-100) fL MCH (25-34) pg MCHC (32-36) g/dL RDW Std Deviation (36.4-46.3) fL RDW Coeff of [place]il[place] (11.5-14.5) % Plt Count (130-400) K/uL MPV (7.4-10.4) fL Immature Gran % (Auto) % Neut % (Auto) % Lymph % (Auto) % [place] % (Auto) % Eos % (Auto) % Baso % (Auto) % Immature Gran # (Auto) (0.00-0.02) K/uL Neut # (Auto) (1.4-6.5) K/uL Lymph # (Auto) (1.2-3.4) K/uL [place] # (Auto) (0.11-0.59) K/uL Eos # (Auto) (0-0.5) K/uL Baso # (Auto) (0-0.2) K/uL PT (9.0-12.0) Seconds INR (0.9-1.1) APTT (21.0-31.0) Seconds PTT Ratio Sodium 139 (136-145) mmol/L Potassium 4.1 (3.5-5.1) mmol/L Chloride 104 (98-107) mmol/L Carbon Dioxide 31 (21-32) mmol/L Anion Gap 4.0 (3-11) BUN 22 H (7-18) mg/dl Creatinine 0.78 (0.6-1.2) mg/dl Est Cr Clr Drug Dosing 51.6 ml/min Est GFR ( Amer) 78.1 Est GFR (Non-Af Amer) 67.4 BUN/Creatinine Ratio 27.9 H (10-20) Glucose 162 H (70-99) mg/dl POC Glucose 139 H (70-99) Calcium 8.7 (8.5-10.1) mg/dl Total Bilirubin 0.5 (0.2-1) mg/dl AST 20 (15-37) U/L ALT 23 (12-78) U/L Alkaline Phosphatase 127 H (45-117) U/L Troponin I 0.045 0.041 (0-0.045) ng/ml NT-Pro-B Natriuret Pep 422 (0-1800) pg/ml Total Protein 6.5 (6.4-8.2) gm/dl Albumin 2.9 L (3.4-5.0) gm/dl Globulin 3.6 (2.5-4.0) gm/dl Albumin/Globulin Ratio 0.8 L (0.9-2) 06/21/19 06/21/19 Range/Units 12:58 12:58 WBC 7.54 (4.8-10.8) K/uL RBC 4.16 L (4.2-5.4) M/uL Hgb 12.6 (12.0-16.0) g/dL Hct 37.6 (37-47) % MCV 90.4 (80-100) fL MCH 30.3 (25-34) pg MCHC 33.5 (32-36) g/dL RDW Std Deviation 43.5 (36.4-46.3) fL RDW Coeff of [place] 13.3 (11.5-14.5) % Plt Count 198 (130-400) K/uL MPV 9.8 (7.4-10.4) fL Immature Gran % (Auto) 0.5 % Neut % (Auto) 74.5 % Lymph % (Auto) 10.9 % [place] % (Auto) 12.5 % Eos % (Auto) 1.3 % Baso % (Auto) 0.3 % Immature Gran # (Auto) 0.04 H (0.00-0.02) K/uL Neut # (Auto) 5.62 (1.4-6.5) K/uL Lymph # (Auto) 0.82 L (1.2-3.4) K/uL [place] # (Auto) 0.94 H (0.11-0.59) K/uL Eos # (Auto) 0.10 (0-0.5) K/uL Baso # (Auto) 0.02 (0-0.2) K/uL PT 10.4 (9.0-12.0) Seconds INR 1.0 (0.9-1.1) APTT 23.1 (21.0-31.0) Seconds PTT Ratio 0.9 Sodium (136-145) mmol/L Potassium (3.5-5.1) mmol/L Chloride (98-107) mmol/L Carbon Dioxide (21-32) mmol/L Anion Gap (3-11) BUN (7-18) mg/dl Creatinine (0.6-1.2) mg/dl Est Cr Clr Drug Dosing ml/min Est GFR ( Amer) Est GFR (Non-Af Amer) BUN/Creatinine Ratio (10-20) Glucose (70-99) mg/dl POC Glucose (70-99) Calcium (8.5-10.1) mg/dl Total Bilirubin (0.2-1) mg/dl AST (15-37) U/L ALT (12-78) U/L Alkaline Phosphatase (45-117) U/L Troponin I (0-0.045) ng/ml NT-Pro-B Natriuret Pep (0-1800) pg/ml Total Protein (6.4-8.2) gm/dl Albumin (3.4-5.0) gm/dl Globulin (2.5-4.0) gm/dl Albumin/Globulin Ratio (0.9-2) Medications Administered Current Inpatient Medications Aspirin (Ecotrin Ectab) 81 mg PO DAILY [facility] Stop: 07/21/19 18:44 Atorvastatin Calcium (Lipitor) 40 mg PO QAM [facility] Stop: 07/21/19 18:59 Furosemide (Lasix) 20 mg PO QAM [facility] Stop: 07/22/19 08:59 Glipizide (Glucotrol) 2.5 mg PO BID@0730,1630 [facility] Stop: 07/22/19 07:29 Levofloxacin/Dextrose (Levaquin/D5w) 750 mg in 150 mls @ 100 mls/hr IV Q24H [facility]; Protocol Stop: 07/05/19 16:29 Last Infusion: 06/21/19 17:59 Dose: Infused Documented by: Losartan Potassium (Cozaar) 100 mg PO DAILY [facility] Stop: 07/21/19 18:59 Magnesium Hydroxide (Milk Of Magnesia) 30 ml PO Q12H PRN PRN Reason: Constipation Stop: 07/21/19 16:47 Metformin HCl (Glucophage) 500 mg PO BIDM [facility] Stop: 07/21/19 20:59 Metoprolol Succinate (Toprol Xl) 25 mg PO BID [facility] Stop: 07/21/19 20:59 Multivitamins (Multivitamin Tab) 1 [facility] [place] Stop: 07/21/19 18:59 Pyridoxine HCl (Vitamin B-6) 25 mg PO QAM [facility] Stop: 07/21/19 18:59 Code Status & VTE Plan Code Status Conditional Code, wants full resuscitative efforts but no mechanical ventilation Supervising Physician Co-Signing Physician Notes Resident Physician Supervision Note: I independently interviewed and examined the patient and verified the kelley history and physical, reviewed labs and image studies, discussed the case with the resident Dr. Wells and agree with the findings and care plan. PG Care Time/CCT Total # of Minutes Spent Total Time Spent with Patient: Total time spent is greater than 50% in coordination of care (as documented) at patient's floor/unit and/or counseling patient: Resident Activity Tracking Resident Involvement: Resident Care Provided Care Provided: Adult Hospital Medicine
[2019-06-21] MEDS ORDERED: GLUCOSE 40% GEL 15 GM TUBE PO PRN (19:48)
[2019-06-21] MEDS ORDERED: DEXTROSE 50% 50 ML SYRINGE IV PRN (19:48)
[2019-06-21] MEDS ORDERED: GLUCOSE 10 TABS/TUBE PO PRN (19:48)
[2019-06-21] MEDS ORDERED: CARBOHYDRATES FOR HYPOGLYCEMIA PO PRN (19:48)
[2019-06-21] MEDS ORDERED: GLUCAGON FOR INJ 1 MG VIAL SQ PRN (19:48)
[2019-06-21] MEDS: MULTIVITAMIN TAB PO SCH (20:13)
[2019-06-21] MEDS: PYRIDOXINE HCL 50 MG TAB PO SCH (20:13)
[2019-06-21] MEDS: ATORVASTATIN 40 MG TAB PO SCH (20:13)
[2019-06-21] MEDS: ASPIRIN 81 MG ECTAB PO SCH (20:13)
[2019-06-21] MEDS: METOPROLOL SUCC 25MG EXT REL TAB PO SCH (20:14)
[2019-06-21] MEDS: LOSARTAN POTASSIUM 50 MG TAB PO SCH (20:14)
[2019-06-21 20:56] LABS: Appearance Urine Clear (Clear); Bilirubin Urine Negative (Negative); Blood Urine Negative (Negative); Color Urine Yellow; Glucose Urine UA Negative (Negative); Ketones Urine Negative (Negative); Leukocyte Esterase Urine Negative (Negative); Nitrite Urine Negative (Negative); Protein Urine Negative (Negative); Specific Gravity Urine 1.014 (1.000-1.030); Urobilinogen Urine Negative (Negative)
[2019-06-21] MEDS ORDERED: METFORMIN HCL 500 MG TAB PO SCH (21:00)
[2019-06-21] MEDS ORDERED: PNEUMOCOCCAL ADMINISTRATION CHARGE ONE (21:00)
[2019-06-21] MEDS ORDERED: PNEUMOCOCCAL POLYSACCHARIDES 25 MCG/0.5 ML VIAL/SYR IM ONE (21:00)
[2019-06-21] MEDS: INSULIN ASPART 100 UNITS/ML 3 ML PEN SC SCH (21:28)
[2019-06-22] MEDS ORDERED: glipiZIDE 5 MG TAB PO SCH (07:30)
[2019-06-22 07:33] LABS: BUN Creatinine Ratio 20.9 (10-20); Creatinine Clr Calc Pharmacy 49.2 ml/min; Est GFR (African American) 76.9; Est GFR (Non-African American) 66.4; Potassium 4.3 mmol/L (3.5-5.1)
[2019-06-22] MEDS: LOSARTAN POTASSIUM 50 MG TAB PO SCH (08:41)
[2019-06-22] MEDS: PYRIDOXINE HCL 50 MG TAB PO SCH (08:41)
[2019-06-22] MEDS: ATORVASTATIN 40 MG TAB PO SCH (08:41)
[2019-06-22] MEDS: INSULIN ASPART 100 UNITS/ML 3 ML PEN SC SCH ×2 (08:41→12:20)
[2019-06-22] MEDS: METOPROLOL SUCC 25MG EXT REL TAB PO SCH (08:41)
[2019-06-22] MEDS: ASPIRIN 81 MG ECTAB PO SCH (08:42)
[2019-06-22] MEDS: MULTIVITAMIN TAB PO SCH (08:42)
[2019-06-22] MEDS ORDERED: FUROSEMIDE 20 MG TAB PO SCH (09:00)
[2019-06-22] MEDS ORDERED: AZITHROMYCIN 250 MG TAB PO SCH (11:00)
--- NOTE | 2019-06-22 14:38 | Discharge Summary ---
Date of Service June 22, 2019 Admission HPI Per Admitting Provider Ms. Wesley is a 88y/o female, with h/o DM, HTN and Hiatal hernia who is presented to the ED complaining of worsening congestion over the last 5 days; over this time has persistently felt congested, first noticed when she started to feel congested; she states that this started with a cough that was bringing up a yellow/whitish mucous, that she most noticed at night; recent sick contacts in Daughter who was seen in ED 10 days ago and diagnosed with bronchitis Over this illness tried some OTC cough suppressants without improvement of her symptoms. Principal Diagnosis Chest Congestion Discharge Exam Constitutional WD/WN, vitals as above Eyes PERRL, conjunctivae normal, anicteric sclerae EOM intact bilaterally ENMT external ear and nose normal, oropharynx normal Respiratory no respiratory distress and no labored breathing Auscultation: + diminished lung sounds (b/l lower lobes); no crackles, no rales and no wheezes Cardiovascular Heart Sounds: normal S1 and normal S2; no gallop, no murmur and no cardiac rub Extremities: no calf tenderness and no edema Gastrointestinal (Abdomen) normal bowel sounds, soft, nontender, no hepatosplenomegaly Neurologic CN's II-XI intact bilaterally and moves all extremities Psychiatric A+Ox3, euthymic affect Lymphatic no cervical lymphadenopathy Discharge Data Allergies Allergy/AdvReac Type Severity Reaction Status Date / Time Penicillins Allergy Unknown CHILDHOOD Verified 06/21/19 13:14 ALLERGY Consultations 06/21/19 16:37 ED Decision to Admit Stat Hospital Course (1) Chest congestion: 88 y/o F presenting with chest congestion, cough, and excessive sputum production over the last 5 days. Chest congestion: -uncertain etiology; CHF vs Pneumonia vs Bronchitis vs COPD -Continue 20mg Lasix PO daily for three days (end date: 06/25) -Continue 500mg Azithromycin daily for three days (end date: 06/25) -CXR (06/21): demonstrated cardiomegaly with mild congestive change and a small left pleural effusion; Bibasilar linear densities favor subsegmental atelectasis; Large hiatus hernia, unchanged. Diabetes: -continue metformin, and glipizide HTN: -continue losartan, and metoprolol LVH: -EKG (06/21): Findings: + other (Otherwise normal intervals for exception of 1st degree AV block), + 1st degree AV block and + left axis deviation; no PVC; Comparison ECG Date: from (01/27/19); Change: no significant change -continue ASA, and atorvastatin Code: Conditional: full resuscitative efforts, no mechanical ventilation (2) LVH (left ventricular hypertrophy): (3) Diabetes mellitus: (4) Bronchitis: (5) Shortness of breath: Total Time Total Time Spent Total Time Spent (In Minutes): Please see Attending attestation Discharge Plan Discharge Items Patient Disposition: Home - Self-Care Reason For Visit: CHF EXACERBATION Discharge Diagnosis: Chest Congestion uncertain etiology Activity: Per Instructions section Non-emergency contact: Primary Care Provider Call non-emergency contact if: your symptoms worsen and your temperature is above 101 Follow-up/Referrals: Issac Brito MD [Primary Care Provider] - Diet: Regular Addtl Attending Provider Instructions: You were admitted following having chest congestion and increased sputum production for the last several day; during this admission we took a image of your chest that showed some minimally increased fluid in your chest as compared to the image that was done in January; for this we gave you some medication that increased how much you peed in order to see if we could get the fluid off and started you on an antibiotic at the same time. After this you had some improvement in the testing that we conducted As you are being discharged we are restarting your home medications; additionally, we are adding two new medications that you took in the hospital that you will continue to take for another three days. One is Azithromycin, an antibiotic that will help to ensure that your chest congestion is not bacterial; and the other is furosemide, the water pill that we gave you to increase your urination. You will take these medications for another 3 days, and can be stopped on June 25. Pending Studies at Discharge: No Stand-Alone Forms: My [facility] Medications and DC Order Prescriptions: New azithromycin [Zithromax] 250 mg Tablet 500 mg PO QAM 4 Days Qty: 8 RF: 0 furosemide 20 mg Tablet 20 mg PO QAM 3 Days Qty: 3 RF: 0 Continued metoprolol succinate 25 mg tablet extended release 24 hr 25 mg PO BID RF: 0 multivitamin Tablet 1 tab PO QAM RF: 0 metformin [Glucophage] 500 mg tablet 500 mg PO BID RF: 0 pyridoxine (vitamin B6) 25 mg Tablet 25 mg PO QAM RF: 0 aspirin [Aspir-Low] 81 mg Tablet,Delayed Release (Dr/Ec) 81 mg PO DAILY RF: 0 glipizide [Glucotrol] 5 mg tablet 2.5 mg PO BID RF: 0 magnesium oxide 200 mg Tablet,Chewable PO QAM RF: 0 atorvastatin 40 mg Tablet 40 mg PO QAM Qty: 30 RF: 0 losartan 100 mg tablet 100 mg PO DAILY RF: 0 Discharge Orders: Discharge Order (Routine); Ordered 06/22/19 Ordered By: Jesus Whitley/Other Patient Handouts: Azithromycin Oral tablet, Furosemide Oral tablet, Heart Failure Meds Control, Heart Failure, Heart Failure Warning Signs, Heart Failure Tracking Weight, Heart Failure Helpful Procedures, Heart Failure Coping, Heart Failure Diet Changes Admission Data Admit Date/Time: 06/21/19 16:48 Attending Provider: Usha Blanton Admit Provider: Usha Blanton Primary Care Provider: Issac Brito Other Providers: Dayne Zheng Other Interventions: Discharge Summary Assessment (RN) Last Done: 06/22/19 14:51 DC Date/Time DO NOT enter until pt leaves facility: 06/22/19 16:21 Supervising Physician Co-Signing Physician Notes Resident Physician Supervision Note: I independently interviewed and examined the patient and verified the kelley history and physical, reviewed labs and image studies, discussed the case with the resident Dr. Wells and agree with the findings and care plan. Resident Activity Tracking Resident Involvement: Resident Care Provided Care Provided: Adult Hospital Medicine
[2019-06-23] MEDS ORDERED: FUROSEMIDE 20 MG TAB PO SCH (09:00)
== END 2019-06-22 16:21 | disposition home or self-care (01) ==
LOC: ED 11:14 → 2S 11:14